=== PATIENT | female | born 1990 | race Caucasian/White ===

== ENCOUNTER 2023-04-05 08:49 | Outpatient (CLI) | payer OTHER, SELFPAY ==
--- NOTE | 2023-04-05 09:15 | CRLHL7_ITS ---
For Patients: As a result of the Century Cures Act, medical imaging exams and procedure reports are released immediately into your electronic medical record. You may view this report before your referring provider. If you have questions, please contact your health care provider. INDICATION: First trimester scan, establish dates. COMPARISON: None. TECHNIQUE: Real-time ross-scale imaging of the pelvis was performed. FINDINGS: Sonographic imaging demonstrates a single living intrauterine gestation. The embryo demonstrates a regular cardiac rate measuring 126 beats per minute. The embryo`s crown-rump length measurement of 1.0 cm corresponds to a gestational age of 7 weeks 1 day with a sonographic due date of 11/21/2023. There is a normal-appearing yolk sac. There are no gross abnormalities noted within the embryo at this early state of development. The gestational sac has a normal appearance. There is no evidence of a perigestational hemorrhage. The amount of fluid within the sac appears appropriate for gestational age. The cervix is closed. The myometrium appears normal. The ovaries are of normal size. Corpus luteal cyst right ovary. There are no suspicious fluid collections noted in the cul-de-sac. IMPRESSION: Normal first trimester OB ultrasound exam. Gestational age calculated at 7 weeks 1 day with a sonographic due date of 11/21/2023. Dictated by Hebert Morejon MD @ 04/05/2023 10:00:41 AM (Electronically Signed)
== END 2023-04-05 08:50 | disposition home or self-care (01) ==
LOC: US 08:51
PROVIDERS: PCP Family Medicine; Visit Provider Registered Nurse
DX: Z34.91 Encounter for supervision of normal pregnancy, unspecified, first trimester (principal); Z3A.01 Less than 8 weeks gestation of pregnancy
CPT/HCPCS: 76817; 82565; 82570; 84156; 84450; 84460; 84520; 86592; 86703; 86762; 86787; 86803; 86850; 86900; 86901; 87086; 87340; 87491; 87591

== ENCOUNTER 2023-05-01 10:45 | Outpatient (CLI) | payer OTHER, SELFPAY | END 2023-05-01 10:46 | disposition home or self-care (01) | PROVIDERS: PCP Family Medicine; Visit Provider Obstetrics & Gynecology | DX: Z34.91 Encounter for supervision of normal pregnancy, unspecified, first trimester (principal); Z87.59 Personal history of other complications of pregnancy, childbirth and the puerperium; Z3A.10 10 weeks gestation of pregnancy | CPT/HCPCS: 81220; 84450; 84460 ==

== ENCOUNTER 2023-05-29 15:50 | Emergency (ER) | payer OTHER, SELFPAY ==
[2023-05-29] VITALS (18 sets, daily range): BP systolic 128–149; BP diastolic 82–96; PULSE 91–140; RESP 18; TEMP 36.4; O2SAT 96–100; BMI 44.8
--- NOTE | 2023-05-29 16:12 | ED.GENADULT ---
HPI - General Adult General Time Seen by Provider: 16:13 Date Seen: 05/29/23 Chief complaint: Dizziness/Vertigo Stated complaint: preganant, high HR, dizziness Time Seen by Provider: 05/29/23 16:07 Source: patient and RN notes reviewed Mode of arrival: ambulatory Limitations: no limitations History of Present Illness HPI narrative: This 33yo female is brought over from OB clinic for elevated heart rate during her clinic appointment today, initially asymptomatic at the initiation of the appointment, not feeling elevated heart rate. During appointment, started to feel sweaty and hot, felt dizzy with standing or sitting; states that she feels so much better now lying down here on the bed. Was absolutely not feeling that her heart was fast today, no chest pain. Only pain that she has been having is right sided abdominal pain which they feel might be related to constipation, has been there for about 2 months. She has been battling constipation for couple months, zofran for associated nausea/vomitting has been making it worse. They feel that she is suffering possibly from dehydration today with her symptoms. Denies urinary issues, no cramping, no vaginal bleeding or discharge. She does endorse times at home after being up and then resting where she will feel her heart beating fast. Does know that she is burping a lot, on omeprazole for reflux. Reports she is about 16 weeks . She states that her OB is working with on constipation, has made some new medication suggestions including Miralax, magnesium. Related Data Home Medications Medication Instructions Recorded Confirmed albuterol sulfate 90 mcg/actuation 2 puff inhalation Q4-6H PRN 05/22/22 05/29/23 aerosol inhaler fluticasone propionate 110 1 puff inhalation BID 05/22/22 05/29/23 mcg/actuation HFA aerosol inhaler (Flovent HFA) guanfacine 1 mg tablet 1 mg PO QDAY 04/05/23 05/29/23 venlafaxine 150 mg 150 mg PO QAM 04/05/23 05/29/23 capsule,extended release 24 hr dotty oil (ANTI-NAUSEA DOTTY gum) 1 piece of gum PO BID PRN 05/01/23 05/29/23 doxylamine succinate 25 mg tablet 25 mg PO QHS PRN 05/29/23 05/29/23 (Unisom (doxylamine)) Previous Rx's Medication Instructions Recorded omeprazole 40 mg capsule,delayed 40 mg PO QDAY #90 caps 05/01/23 release ondansetron HCl 4 mg tablet 4 mg PO Q6H PRN nausea and 05/01/23 vomiting #30 tabs Allergies Allergy/AdvReac Type Severity Reaction Status Date / Time trazodone Allergy Mild Hives Verified 05/29/23 16:10 Review of Systems Status of ROS: Reports: 6 or more systems reviewed and unremarkable except as noted in History and below [facility] Medical History (Updated 05/29/23 @ 19:10 by Ewelina Draper MD) Gestational hypertension (03/2019) ?O13.9 - Gestational [-induced] hypertension without significant proteinuria, unspecified trimester (ICD-10) History of miscarriage ?Z87.59 - Personal history of other complications of , childbirth and the puerperium (ICD-10) hemorrhage ?O72.1 - Other immediate hemorrhage (ICD-10) Surgical History (Updated 05/01/23 @ 18:47 by Adelina Chen MD) Status post primary low transverse section ?Z98.891 - History of uterine scar from previous surgery (ICD-10) History of cholecystectomy ?Z90.49 - Acquired absence of other specified parts of digestive tract (ICD-10) Family History Father Coronary artery disease Mother Depression Social History What is your current living situation?: I presently have a place to live Problems where you live: no known problems In the past 12 months, utilities in danger of being shut off: no In past 12 months, lack of transportation kept you from medical appts, meetings, work, or getting things needed for daily living: no How hard is it for you to pay for the very basics like food, housing, medical care, and heating: not very hard In the past 12 mos, have been you worried that your food would run out before you had money to buy more?: never true In the past 12 mos, the food you bought just didn't last and you didn't have money to buy more?: never true Smoking Status: Current every day smoker What tobacco products do you use: cigarettes Do you use any of these nicotine containing products: None Second hand tobacco smoke exposure: No How often do you have a drink containing alcohol: never How often do you have six or more drinks on one occasion: Never AUDIT-C Alcohol total score: 0 Non-prescribed substance use: denies use Within the last year, have you been humiliated or emotionally abused in other ways by your partner or ex-partner: no Within the last year, have you been afraid of your partner or ex-partner: no Within the last year, have you been raped or forced to have any kind of sexual activity by your partner or ex-partner: no Within the last year, have you been kicked, hit, slapped, or otherwise physically hurt by your partner or ex-partner: no HARK total score: 0 Little interest or pleasure in doing things: more than half the days Feeling down, depressed, or hopeless: several days service: No Exam Const: Vital Signs, click to edit/add: Vital Signs - 24 hr 05/29/23 16:00 05/29/23 16:14 05/29/23 17:23 Temperature 97.5 F L Pulse Rate 100 Pulse Rate [Right Pulse Oximeter] 140 H Respiratory Rate 18 Blood Pressure Blood Pressure [Ri ght Upper Arm] 132/82 Pulse Oximetry 98 98 97 Oxygen Delivery Me od Room Air 05/29/23 17:30 05/29/23 17:32 05/29/23 17:45 Temperature Pulse Rate 102 H 101 H 98 Pulse Rate [Right Pulse Oximeter] Respiratory Rate Blood Pressure 149/91 H Blood Pressure [Ri ght Upper Arm] Pulse Oximetry 97 97 98 Oxygen Delivery Wy thod 05/29/23 18:00 05/29/23 18:02 05/29/23 18:15 Temperature Pulse Rate 91 99 100 Pulse Rate [Right Pulse Oximeter] Respiratory Rate Blood Pressure 138/96 H Blood Pressure [Ri ght Upper Arm] Pulse Oximetry 96 98 99 Oxygen Delivery Wy thod 05/29/23 18:31 05/29/23 18:32 05/29/23 19:00 Temperature Pulse Rate 102 H 108 H 104 H Pulse Rate [Right Pulse Oximeter] Respiratory Rate Blood Pressure 128/89 Blood Pressure [Ri ght Upper Arm] Pulse Oximetry 99 99 [facility] 19:02 Temperature Pulse Rate 100 Pulse Rate [Right Pulse Oximeter] Respiratory Rate Blood Pressure 133/94 H Blood Pressure [Ri ght Upper Arm] Pulse Oximetry 98 Oxygen Delivery Me thod 33-year-old female is alert, interactive, no apparent distress, speaking in complete sentences, no tachypnea noted. She is lying on her side on the ER bed. Sclera is clear, pupils equal round reactive. Symmetrical facial function. Neck is supple, no masses, no thyromegaly masses or nodules. Lungs are clear, good air entry, no wheezing or crackles. Heart rate sounds fast, heart sounds are somewhat distant but I do not hear murmur. Abdomen is obese but soft, nontender, nondistended. She has no appreciable lower extremity edema. Moving arms and legs, no focal neurologic deficit noted Documenting provider has reviewed patient's vital signs: yes Course Course ED Course: Patient's pulse is elevated on intake at triage at 1:40 a.m.. Will have her on cardiac monitoring, pulse oximetry, get baseline EKG. We will initiate an IV, give a L of IV fluids, see if there is anything concerning with her labs. Will try to further differentiate the tachycardia if possible. It is likely that this will be a sinus tachycardia. Reevaluation(s) Time of Reevaluation #1: 19:02 Reevaluation #1: Reviewed with patient that she certainly is demonstrating dehydration on her labs. Her bicarb was low at 15, urine had 3+ ketones. She states when she was up to the bathroom to urinate from which we obtained her urinalysis, she only went to small amount. This was after 1 L of fluids. She states she is also hungry. At rest now, her heart rate was 107-110 when I was with her. This appears to be a sinus tachycardia. I do think there is a component of dehydration certainly. It may remain to be seen that she might be having higher heart rate which can be expected from , will have to follow and see. At this time, have recommended a 2 L of fluids and have ordered lactated Ringer's. I will have nursing staff see if they can find her a snack. We will see what her heart rate is doing after the 2 L of fluids. She is feeling better. Time of Reevaluation #2: 19:53 Reevaluation #2: Patient is nearing completion of her 2 L of fluids. Pulse is in the 90s at rest but when she starts talking to me does jump up to about 100-105. We did discuss normal compensatory rise in baseline pulse with but certainly would not expect 140 as we discussed. Will have her follow up with her OB provider, discussed need to push more fluids. At this time, patient certainly is safe to discharge to further outpatient cares. Vital Signs Vital signs: Initial Vital Signs Temperature 97.5 F L 05/29/23 16:00 Temperature Source Temporal Artery Scan 05/29/23 16:00 Pulse Rate 140 H 05/29/23 16:00 Respiratory Rate 18 05/29/23 16:00 Blood Pressure 132/82 05/29/23 16:00 Blood Pressure Mean 98 05/29/23 16:00 Blood Pressure Position Sitting 05/29/23 16:00 Pulse Oximetry 98 05/29/23 16:00 Oxygen Delivery Method Room Air 05/29/23 16:00 Vital Signs Temperature 97.5 F L 05/29/23 16:00 Pulse Rate 140 H 05/29/23 16:00 Respiratory Rate 18 05/29/23 16:00 Blood Pressure 132/82 05/29/23 16:00 Pulse Oximetry 98 05/29/23 16:00 Oxygen Delivery Method Room Air 05/29/23 16:00 Temperature 97.5 F L 05/29/23 16:00 Pulse Rate 100 05/29/23 19:02 Respiratory Rate 18 05/29/23 16:00 Blood Pressure 133/94 H 05/29/23 19:02 Pulse Oximetry 98 05/29/23 19:02 Oxygen Delivery Method Room Air 05/29/23 16:00 Medical Decision Making Lab Data Lab results reviewed: Yes I reviewed the patient's lab results Labs: Lab Results 05/29/23 05/29/23 Range/Units 17:00 18:25 WBC 11.91 H (4.50-11.00) K/uL RBC 4.77 (4.00-5.20) m/uL Hgb 14.2 (12.0-16.0) gm/dL Hct 41.2 (33.0-51.0) % MCV 86 (80-100) fL MCH 30 (26-34) pg MCHC 35 (32-36) gm/dL RDW Coeff of Tricia 12.4 (11.5-15.5) % Plt Count 260 (140-440) K/uL Neut % (Auto) 73.9 H (42.0-72.0) % Lymph % (Auto) 21.1 (20-44) % [place] % (Auto) 3.6 (0.0-11.0) % Eos % (Auto) 1.1 (0.0-7.0) % Baso % (Auto) 0.1 (0.0-3.0) % Neut # (Auto) 8.80 H (1.7-7.0) K/uL Lymph # (Auto) 2.50 (0.90-2.90) K/uL [place] # (Auto) 0.40 (0.00-0.90) K/UL Eos # (Auto) 0.10 (0.00-0.50) K/uL Baso # (Auto) 0.00 (0.00-0.30) K/uL Abs Immat Gran (auto) 0.00 (0.00-0.30) K/uL Imm/Tot Granulo (auto) 0.2 % Sodium 135 (135-149) mmol/L Potassium 3.9 (3.6-5.1) mmol/L Chloride 107 (96-114) mmol/L Carbon Dioxide 15 L (20-32) mmol/L Anion Gap 13 (7-15) mEq/L BUN 7 (5-24) mg/dL Creatinine 0.5 (0.5-1.5) mg/dL Estimated Creat Clear 158.53 Estimated GFR 129 ml/min Glucose 92 (60-115) mg/dL Lactate 1.0 (0.5-1.9) mmol/L Calcium 9.6 (8.4-10.6) mg/dL Magnesium 1.7 (1.5-2.6) mg/dL Total Bilirubin 0.4 (0.1-1.5) mg/dL AST 25 (12-35) U/L ALT 22 (4-35) U/L Alkaline Phosphatase 76 (40-150) U/L Troponin I < 0.01 L (0.01-0.04) ng/mL NT-Pro-B Natriuret Pep < 20 pg/mL Total Protein 7.3 (6.0-8.3) g/dL Albumin 4.0 (3.3-5.0) g/dL Urine Color Yellow (Yellow) Urine Appearance Cloudy A (Clear) Urine pH 6.0 (5.0-8.5) Ur Specific [place] >= 1.030 (1.000-1.030) Urine Protein 2+ A (Negative) Urine Glucose (UA) Negative (Negative) Urine Ketones 3+ A (Negative) Urine Blood Trace-intact A (Negative) Urine Nitrite Negative (Negative) Urine Bilirubin 1+ A (Negative) Urine Urobilinogen 0.2 (0.2-1.0) Ur Leukocyte Esterase Negative (Negative) Urine RBC 0-2 (0-2) Urine WBC 0-2 (0-5) Ur Squamous Epith Cells Moderate A (None-Few) Urine Bacteria Moderate A (None) Urine Mucus Moderate A (None) ECG Data Attestation: I personally reviewed and interpreted this ECG as follows: (Sinus tachycardia, 110 beats per minute. There is baseline artifact on this EKG. Flipped T-waves V4 V5, difficult to say in V6 due to the baseline artifact. Do not see definitive ST segment changes. Flipped T-waves likely in lead 3 again inconsistent baseline due to artifact.) Prior ECG tracings: not available for review Discharge Plan Discharge Clinical Impression: Sinus tachycardia, Nausea and vomiting during , Acute dehydration Patient Disposition: Home, Self-Care Condition: Stable Instructions: Nausea and Vomiting in (ED), Atrial Tachycardia (ED) Additional Instructions: Need to follow up with OB within the next week for recheck, soon as able to if ongoing concerns. Need to try to stay better hydrated, please talk to your OB about this further particularly if you have ongoing issues that are not settling down with progression. It is not abnormal for heart rate to increase during but do not expect levels of 140's. If you are having problems with ongoing elevated heart rate that is not associated with dehydration, may need to have further cardiac evaluation including but not limited to echo, Holter monitoring or ZIO patch monitoring, possible Cardiology consultation. Ultimately defer to your OB provider. Prescriptions: No Action fluticasone propionate [Flovent HFA] 110 mcg/actuation HFA aerosol inhaler 1 puff inhalation BID albuterol sulfate 90 mcg/actuation HFA aerosol inhaler 2 puff inhalation Q4-6H PRN guanfacine 1 mg tablet 1 mg PO QDAY venlafaxine 150 mg capsule,extended release 24hr 150 mg PO QAM ANTI-NAUSEA DOTTY Gum 1 piece of gum PO BID PRN omeprazole 40 mg capsule,delayed release(DR/EC) 40 mg PO QDAY Qty: 90 0RF ondansetron HCl 4 mg tablet 4 mg PO Q6H PRN (Reason: nausea and vomiting) Qty: 30 2RF Unisom (doxylamine) 25 mg tablet 25 mg PO QHS PRN Follow Up/Referrals: Edinson Loo MD [Primary Care Provider] - Stand Alone Forms: [facility] Inst[facility]
[2023-05-29] MEDS: ONDANSETRON 2 MG/ML inj 4 MG IVP (17:06)
[2023-05-29] MEDS: 0.9 % SODIUM CHLORIDE 1000 ml 1,000 ML IV (17:06)
[2023-05-29 17:07] LABS: Basophils Percent Auto 0.1 % (0.0-3.0); Eosinophils Percent Auto 1.1 % (0.0-7.0); Hematocrit 41.2 % (33.0-51.0); Hemoglobin* 14.2 gm/dL (12.0-16.0); Immature Granulocytes Pct Auto 0.2 %; Lymphocytes Percent Auto 21.1 % (20-44); Mean Corpuscular HGB Conc 35 gm/dL (32-36); Mean Corpuscular Hemoglobin 30 pg (26-34); Mean Corpuscular Volume 86 fL (80-100); Monocytes Percent Auto 3.6 % (0.0-11.0); Neutrophils Percent Auto 73.9 % (42.0-72.0); Platelet Count* 260 K/uL (140-440); RDW Coefficient of Variation % 12.4 % (11.5-15.5); Red Blood Count 4.77 m/uL (4.00-5.20); White Blood Count* 11.91 K/uL (4.50-11.00)
[2023-05-29 17:09] LABS: Slide Review Reflex No
[2023-05-29 17:28] LABS: Magnesium* 1.7 mg/dL (1.5-2.6)
[2023-05-29 18:04] LABS: NT Pro B Type NatriureticPept* < 20 pg/mL; Troponin I* < 0.01 ng/mL (0.01-0.04)
[2023-05-29 18:32] LABS: Appearance Urine Cloudy (Clear); Bilirubin Urine 1+ (Negative); Blood Urine Trace-intact (Negative); Color Urine Yellow (Yellow); Glucose Urine Negative (Negative); Ketones Urine 3+ (Negative); Leukocyte Esterase Urine Negative (Negative); Nitrite Urine Negative (Negative); Protein Urine 2+ (Negative); Specific Gravity Urine >= 1.030 (1.000-1.030); Urobilinogen Urine 0.2 (0.2-1.0)
[2023-05-29 18:33] LABS: Chloride* 107 mmol/L (96-114); Sodium* 135 mmol/L (135-149)
[2023-05-29 18:34] LABS: Potassium* 3.9 mmol/L (3.6-5.1)
[2023-05-29 18:36] LABS: Alanine Aminotransferase* 22 U/L (4-35); Alkaline Phosphatase* 76 U/L (40-150); Anion Gap 13 mEq/L (7-15); Aspartate Amino Transferase* 25 U/L (12-35); Bilirubin Total* 0.4 mg/dL (0.1-1.5); Blood Urea Nitrogen* 7 mg/dL (5-24); Carbon Dioxide* 15 mmol/L (20-32); Creatinine* 0.5 mg/dL (0.5-1.5); Est. Creatinine Clearance* 158.53; Estimated Glomerular Filt Rate 129 ml/min; Total Protein* 7.3 g/dL (6.0-8.3)
[2023-05-29 18:37] LABS: Calcium* 9.6 mg/dL (8.4-10.6); Glucose* 92 mg/dL (60-115)
[2023-05-29 18:41] LABS: Bacteria Urine Moderate; Mucus Urine Moderate; RBC Urine 0-2 (0-2); Squamous Epithelial Cell Urine Moderate (None-Few); WBC Urine 0-2 (0-5)
[2023-05-29] MEDS: LACTATED RINGERS 1000 ML 1,000 ML IV (19:07)
== END 2023-05-29 20:18 | disposition home or self-care (01) ==
PROVIDERS: Emergency Provider Family Medicine; PCP Family Medicine
DX: R00.0 Tachycardia, unspecified (principal); R11.2 Nausea with vomiting, unspecified; E86.0 Dehydration; Z3A.16 16 weeks gestation of pregnancy
CPT/HCPCS: 36415; 80053; 81001; 83605; 83735; 83880; 84484; 85025; 87086; 93005; 94761; 96374; 99284; J2405; J7030; J7120

== ENCOUNTER 2023-07-26 12:47 | Outpatient (CLI) | payer OTHER, SELFPAY | END 2023-07-26 12:48 | disposition home or self-care (01) | PROVIDERS: PCP Family Medicine; Visit Provider Obstetrics & Gynecology | DX: I47.9 Paroxysmal tachycardia, unspecified (principal) | CPT/HCPCS: 80048; 83735; 84443; 93306 ==

== ENCOUNTER 2023-08-21 12:35 | Outpatient (CLI) | payer OTHER, SELFPAY | END 2023-08-21 12:36 | disposition home or self-care (01) | LOC: NFLDREF 08-28 11:51 | PROVIDERS: PCP Family Medicine; Referring Provider Family Medicine; Visit Provider Obstetrics & Gynecology | DX: O13.2 Gestational [pregnancy-induced] hypertension without significant proteinuria, second trimester (principal); Z3A.27 27 weeks gestation of pregnancy | CPT/HCPCS: 76816; 86592 ==

== ENCOUNTER 2023-09-03 21:28 | Outpatient (CLI) | payer OTHER, SELFPAY ==
[2023-09-03] VITALS (21 sets, daily range): BP systolic 108–172; BP diastolic 50–97; PULSE 96–127; RESP 20; TEMP 37.6; O2SAT 92–98
--- NOTE | 2023-09-03 22:14 | CRLHL7_ITS ---
For Patients: As a result of the Century Cures Act, medical imaging exams and procedure reports are released immediately into your electronic medical record. You may view this report before your referring provider. If you have questions, please contact your health care provider. INDICATION: Severe hypertension. TECHNIQUE: Chest 1 view. COMPARISON: None. FINDINGS: Cardiovascular and mediastinum: Heart size and vasculature are normal in caliber and appearance. Lungs and pleural spaces: Lungs are clear. No sign of infiltrate or mass. No sign of pleural effusion. No pneumothorax. Bones and soft tissues: No significant findings. IMPRESSION: Unremarkable chest. Dictated by Ken Singh MD @ 09/03/2023 11:12:42 PM (Electronically Signed)
[2023-09-03] MEDS: LABETALOL HCL 5 MG/ML inj IVP (22:17)
[2023-09-03] MEDS: MAGNESIUM IV 4 GM/100 ML PIGGYBACK IVPB (22:23)
[2023-09-03] MEDS: BETAMETHASONE SOD PHOS/ACETATE 6 MG/ML ML 12 MG IM (22:24)
[2023-09-03 22:41] LABS: Total Protein Urine 11 mg/dL
[2023-09-03 22:42] LABS: Creatinine Urine 143.8 mg/dL
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
[2023-09-03 22:56] LABS: Alanine Aminotransferase* 12 U/L (4-35); Aspartate Amino Transferase* 16 U/L (12-35); Blood Urea Nitrogen* 5 mg/dL (5-24); Creatinine* 0.5 mg/dL (0.5-1.5); Estimated Glomerular Filt Rate 129 ml/min
[2023-09-03 23:04] LABS: Hematocrit 35.7 % (33.0-51.0); Hemoglobin* 12.1 gm/dL (12.0-16.0); Mean Corpuscular HGB Conc 34 gm/dL (32-36); Mean Corpuscular Hemoglobin 30 pg (26-34); Mean Corpuscular Volume 90 fL (80-100); Platelet Count* 313 K/uL (140-440); Red Blood Count 3.99 m/uL (4.00-5.20); White Blood Count* 13.66 K/uL (4.50-11.00)
[2023-09-03 23:08] LABS: Slide Review Reflex No
[2023-09-04] VITALS (10 sets, daily range): BP systolic 122–126; BP diastolic 64–67; PULSE 99–111; TEMP 37.6; O2SAT 92–97
--- NOTE | 2023-09-04 01:52 | PC.OBNST ---
NST Note NST Note Start: 09/03/23 21:30 Freq: ONCE Status: Active Protocol: Document 09/04/23 01:49 SAMIA (Rec: 09/04/23 01:52 NAMITAMindi [id number]) NST Note 3 Para (# of births) 1 EDC 11/21/23 Gestational Age In Weeks & Days 28 Weeks & 6 Days High Risk Factors High Blood Pressure - Preexisting Patient Presented with Complaint(s) of Pain If Pain, describe location Epigastric pain underneath the right ribs Other Complaints Patient has been experiencing shortness of breath, epigastric pain, and frequent headaches in the last few days . Patient states she took her blood pressure at home tonight and that it was low and she was feeling like her heart was racing. Her oxygen saturation was also reading 94% on a home monitor Reactive Yes Appropriate for Gestational Age Yes SUSANA Bertrand RNC Date 09/04/23 Reactive Yes Appropriate for Gestational Age Yes SUSANA Campos RN Date 09/04/23 OB NST charge Yes Complete NST Note via Write Note Yes The provider's electronic signature indicates the NST is reactive/appropriate for gestational age. *Note to provider: If an addendum is required, open the patient's chart and click on the note under the Nurse/Allied Health tab.
== END 2023-09-04 00:55 | disposition other institution (70) ==
LOC: OB OUT 21:29 → OB 21:29
PROVIDERS: PCP Family Medicine; Visit Provider Obstetrics & Gynecology
DX: O10.913 Unspecified pre-existing hypertension complicating pregnancy, third trimester (principal); Z3A.28 28 weeks gestation of pregnancy
CPT/HCPCS: 36415; 59025; 71045; 82565; 82570; 84156; 84450; 84460; 84520; 85027; G0463; J0702; J3475

== ENCOUNTER 2023-09-04 00:45 | Outpatient (CLI) | payer OTHER, SELFPAY | END 2023-09-04 00:46 | disposition home or self-care (01) | LOC: AMB 09-06 16:00 | PROVIDERS: PCP Family Medicine; Visit Provider Family Medicine | DX: O14.10 Severe pre-eclampsia, unspecified trimester (principal) | CPT/HCPCS: A0425; A0426 ==

== ENCOUNTER 2023-09-17 21:50 | Outpatient (CLI) | payer OTHER, SELFPAY ==
[2023-09-17] VITALS (22 sets, daily range): BP systolic 100–126; BP diastolic 52–72; PULSE 94–121; RESP 18; TEMP 37.1; O2SAT 94–99
[2023-09-17 23:40] LABS: Alanine Aminotransferase* 10 U/L (4-35); Aspartate Amino Transferase* 18 U/L (12-35); Creatinine* 0.5 mg/dL (0.5-1.5); Estimated Glomerular Filt Rate 129 ml/min
[2023-09-17 23:41] LABS: Blood Urea Nitrogen* 5 mg/dL (5-24); Hematocrit 33.5 % (33.0-51.0); Hemoglobin* 11.2 gm/dL (12.0-16.0); Mean Corpuscular HGB Conc 33 gm/dL (32-36); Mean Corpuscular Hemoglobin 30 pg (26-34); Mean Corpuscular Volume 89 fL (80-100); Platelet Count* 299 K/uL (140-440); Red Blood Count 3.77 m/uL (4.00-5.20); Slide Review Reflex No
[2023-09-18 00:06] VITALS: BP 112/59; PULSE 104
[2023-09-18 00:23] LABS: Total Protein Urine 20 mg/dL
[2023-09-18 00:24] LABS: Creatinine Urine 322.5 mg/dL
--- NOTE | 2023-09-18 01:49 | PC.OBNST ---
NST Note NST Note Start: 09/17/23 22:03 Freq: ONCE Status: Active Protocol: Document 09/18/23 01:47 LEONARDO (Rec: 09/18/23 01:49 LEONARDO [id number]) NST Note 3 Para (# of births) 1 EDC 11/21/23 Gestational Age In Weeks & Days 30 Weeks & 6 Days High Risk Factors High Blood Pressure - Preexisting,High Blood Pressure - Gestational Patient Presented with Complaint(s) of Other Other Complaints Elevated Blood Pressures at Home Appropriate for Gestational Age Yes RN Reilly Faye RN Date 09/18/23 Appropriate for Gestational Age Yes RN Lana Gandara RN (also reviewed by Dianelys An MD) Date 09/18/23 OB NST charge Yes Complete NST Note via Write Note Yes The provider's electronic signature indicates the NST is reactive/appropriate for gestational age. *Note to provider: If an addendum is required, open the patient's chart and click on the note under the Nurse/Allied Health tab.
== END 2023-09-18 01:12 | disposition home or self-care (01) ==
LOC: OB OUT 21:50 → OB 21:51
PROVIDERS: PCP Family Medicine; Visit Provider Obstetrics & Gynecology
DX: O10.913 Unspecified pre-existing hypertension complicating pregnancy, third trimester (principal); Z3A.30 30 weeks gestation of pregnancy
CPT/HCPCS: 36415; 59025; 82565; 82570; 84156; 84450; 84460; 84520; 85027; G0463

== ENCOUNTER 2023-09-27 09:03 | Outpatient (CLI) | payer OTHER, SELFPAY ==
--- NOTE | 2023-09-27 09:15 | CRLHL7_ITS ---
For Patients: As a result of the Century Cures Act, medical imaging exams and procedure reports are released immediately into your electronic medical record. You may view this report before your referring provider. If you have questions, please contact your health care provider. INDICATION: Chronic HTN, Poly, Obesity COMPARISON: 08/21/2023 TECHNIQUE: Real time ross scale imaging of the fetus was performed. Without non-stress testing. FINDINGS: Sonographic imaging demonstrates a single living intrauterine gestation. Fetus demonstrates a regular cardiac rate of 142 beats per minute. Fetus has a vertex position. The amniotic fluid volume appears normal and there is a single deepest pocket measurement of 7.8 cm. The fetus was active and demonstrated normal breathing movements. There was normal flexion and extension of the trunk and extremities. IMPRESSION: Normal biophysical profile score of 8 out of 8. Dictated by Hebert Morejon MD @ 09/27/2023 12:07:23 PM (Electronically Signed)
== END 2023-09-27 09:04 | disposition home or self-care (01) ==
LOC: US 09:04
PROVIDERS: PCP Family Medicine; Visit Provider Obstetrics & Gynecology
DX: O10.919 Unspecified pre-existing hypertension complicating pregnancy, unspecified trimester (principal); O40.9XX0 Polyhydramnios, unspecified trimester, not applicable or unspecified; O99.210 Obesity complicating pregnancy, unspecified trimester
CPT/HCPCS: 76819

== ENCOUNTER 2023-10-03 12:59 | Outpatient (CLI) | payer OTHER, SELFPAY ==
--- NOTE | 2023-10-03 13:00 | US_ITS ---
Patient: ARTEM MEEHAN Facility:?[facility] Patient ID:?[id number] Site Patient ID:?[id number]. Site :?[id number] Study:?US-OB Pelvis BPP W GROWTH-10/03/2023 2:06:27 PM Ordering Physician:?NESHA THOMPSON Final Report: INDICATION: CHTN, POLY, OBESITY TECHNIQUE: Real time ross scale imaging of the fetus was performed. COMPARISON: 09/27/2023 FINDINGS: Sonographic imaging demonstrates a single living intrauterine gestation. Fetus demonstrates a regular cardiac rate of 167 beats per minute. Fetus has a vertex position. The placenta lies anteriorly. Amniotic fluid volume appears increased and there is a single deepest pocket of 10.0 cm. JESUS ALBERTO 28.9 cm. The estimated weight is 09/23/2004gm which lies at the 89th %. On the prior OB ultrasound dated 08/21/2023 the estimated weight was at the 81st percentile. BPD 84th percentile. HC 48th percentile. AC 94th percentile. FL 79th percentile. The fetus was active and demonstrated normal breathing movements. There was normal flexion and extension of the trunk and extremities. IMPRESSION: Normal biophysical profile score 8/8. Sonographic gestational age 34 weeks 4 days and sonographic due date of 11/10/2023. Sonographic age 11 days ahead of the clinical age. Estimated weight 89th percentile. Abdominal circumference 94th percentile. Polyhydramnios. JESUS ALBERTO 28.9 cm. Dictated by Hebert Morejon MD @ 10/04/2023 6:53:40 AM Signed by:?Hebert Morejon MD @10/04/2023 6:53:40 AM (Electronic Signature)
== END 2023-10-03 13:00 | disposition home or self-care (01) ==
LOC: US 13:00
PROVIDERS: PCP Family Medicine; Visit Provider Obstetrics & Gynecology
DX: O10.913 Unspecified pre-existing hypertension complicating pregnancy, third trimester (principal); O40.3XX0 Polyhydramnios, third trimester, not applicable or unspecified; O99.213 Obesity complicating pregnancy, third trimester; Z3A.34 34 weeks gestation of pregnancy
CPT/HCPCS: 76816; 76819

== ENCOUNTER 2023-10-11 13:49 | Emergency (ER) | payer OTHER, SELFPAY ==
[2023-10-11 14:10] VITALS: BP 107/69; PULSE 89; TEMP 36.5; O2SAT 98; BMI 45.2
--- NOTE | 2023-10-11 15:34 | ED_ITS ---
HPI - General Adult General Date Seen: 10/11/23 Chief complaint: Abdominal Pain Stated complaint: OB appt/34 wks and sent here-95 o2, high BP Time Seen by Provider: 10/11/23 14:59 History of Present Illness HPI narrative: This is a 33-year-old female with a complex past obstetric history who is currently 34 weeks who was referred to the ER today from the OB clinic for evaluation of tachycardia, leg swelling, and to rule out blood clots. She has a complex history. She has a previous and plans to deliver her neck is baby by . She has tobacco use, working on quitting. She has elevated BMI. She has chronic hypertension which has been complicating her . She did have an admission up at [facility] few weeks ago for elevated blood pressure no other symptoms. She is now on labetalol 100 mg b.i.d.. She also has been experiencing sinus tachycardia for the past several months of her , dating back at least to last May. Has been referred for a Cardiology consult. She has already had an echo that was normal. She also has pubic symphysis and hip pain. Also sciatica affecting her . Most recent visit on October 03 had multiple concerns including shortness of breath, musculoskeletal pain, elevated blood pressure, elevated heart rate, polyhydramnios. also did or is desiring expeditious and delivery and also tubal ligation. She has had all of these ongoing symptoms including persistently elevated heart rate for the past few months that still been ongoing for the past few days. She has been short of breath which is largely positional and she thinks related to her baby pushing up against her diaphragm. No new or sudden onset shortness of breath recently or today. 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 She has also had some trouble with sciatica affecting her right leg. She does have some chronic edema in her legs which is apparently related to her 3rd trimester . Today she feels like her left leg is little bit more swollen and tight than normal. She was eating at [employer] today with her family in when she got up she felt a sudden mays of blood up to her head and felt dizzy and saw stars. She went to lay down in her car for a while. She does get frequent migraines and headaches but today's symptoms were not really headache at all, just more of a ?mays to the head. ?. She also has mild chest pain ongoing for the past couple of weeks that is not really different than normal today. It is not pleuritic. She is feeling her baby kicking. No abdominal pain. No vaginal fluid leakage or bleeding. She does not have any concern for the baby at this time. Related Data Home Medications Medication Instructions Recorded Confirmed albuterol sulfate 90 mcg/actuation 2 puff inhalation Q4-6H PRN 05/22/22 10/11/23 aerosol inhaler fluticasone propionate 110 1 puff inhalation BID 05/22/22 10/11/23 mcg/actuation HFA aerosol inhaler (Flovent HFA) guanfacine 1 mg tablet 1 mg PO QDAY 04/05/23 10/11/23 venlafaxine 150 mg 150 mg PO QAM 04/05/23 10/11/23 capsule,extended release 24 hr doxylamine succinate 25 mg tablet 25 mg PO QHS PRN 05/29/23 10/11/23 (Unisom (doxylamine)) aspirin 81 mg tablet,delayed 162 mg PO QDAY 07/26/23 10/11/23 release (Adult Low Dose Aspirin) polyethylene glycol 3350 17 4 g PO ONCE 07/26/23 10/11/23 gram/dose oral powder (Miralax) acetaminophen 500 mg capsule 500 mg PO Q4-6H PRN 09/17/23 10/11/23 magnesium citrate 100 mg capsule 100 mg PO DAILY PRN 09/27/23 10/11/23 Previous Rx's Medication Instructions Recorded hydroxyzine pamoate 50 mg capsule 50 mg PO QHS PRN anxiety/sleep #30 08/21/23 caps labetalol 100 mg tablet 100 mg PO BID #60 tabs 08/21/23 omeprazole 40 mg capsule,delayed 40 mg PO QDAY #90 caps 08/22/23 release Allergies Allergy/AdvReac Type Severity Reaction Status Date / Time trazodone Allergy Mild Hives Verified 10/11/23 14:18 [facility] Medical History (Updated 10/11/23 @ 20:54 by Con Ball MD) Tobacco dependence syndrome ?F17.200 - Nicotine dependence, unspecified, uncomplicated (ICD-10) Gestational hypertension (03/2019) ?O13.9 - Gestational [-induced] hypertension without significant proteinuria, unspecified trimester (ICD-10) History of miscarriage ?Z87.59 - Personal history of other complications of , childbirth and the puerperium (ICD-10) hemorrhage ?O72.1 - Other immediate hemorrhage (ICD-10) Surgical History Status post primary low transverse section ?Z98.891 - History of uterine scar from previous surgery (ICD-10) History of cholecystectomy ?Z90.49 - Acquired absence of other specified parts of digestive tract (ICD- 10) Family History (Updated 09/03/23 @ 23:14 by Dianelys An MD) Father Coronary artery disease Mother Depression Chronic mental illness Other Alcohol dependence Drug dependence Social History (Updated 09/04/23 @ 00:22 by Dianelys An MD) What is your current living situation?: I presently have a place to live Problems where you live: no known problems In the past 12 months, utilities in danger of being shut off: no In past 12 months, lack of transportation kept you from medical appts, meetings, work, or getting things needed for daily living: no How hard is it for you to pay for the very basics like food, housing, medical care, and heating: not very hard In the past 12 mos, have been you worried that your food would run out before you had money to buy more?: never true In the past 12 mos, the food you bought just didn't last and you didn't have money to buy more?: never true Smoking Status: Former smoker What tobacco products do you use: cigarettes Smoking quit date/years: <= 15 years ago Do you use any of these nicotine containing products: None Second hand tobacco smoke exposure: No How often do you have a drink containing alcohol: never How often do you have six or more drinks on one occasion: Never AUDIT-C Alcohol total score: 0 Non-prescribed substance use: denies use Within the last year, have you been humiliated or emotionally abused in other ways by your partner or ex-partner: no Within the last year, have you been afraid of your partner or ex-partner: no Within the last year, have you been raped or forced to have any kind of sexual activity by your partner or ex-partner: no Within the last year, have you been kicked, hit, slapped, or otherwise physically hurt by your partner or ex-partner: no HARK total score: 0 Little interest or pleasure in doing things: several days Feeling down, depressed, or hopeless: nearly every day service: No Exam Narrative: Exam Narrative: Constitutional: Appears well-developed and well-nourished. Alert. Conversant, but seems somewhat anxious and is talking about multiple symptoms, and often switches back and forth from 1 symptom to another. Is redirectable and ultimately I am able to get a fairly good history. Non toxic. Subsequently arrives and he seems calm and supportive. HENT: Head: Atraumatic. Nose: Nose normal. Mouth/Throat: Oral mucosa is clear and moist. no trismus. Pharynx normal. Tonsils symmetric. No tonsillar enlargement, erythema, or exudate. Eyes: Conjunctivae normal. EOM normal. Pupils equal, round, and reactive to light. No scleral icterus. Neck: Normal range of motion. Neck supple. No tracheal deviation present. Cardiovascular: Tachycardic, averaging about 115 sinus tach on the monitor, regular rhythm. No gallop. No friction rub. No murmur heard. Symmetric radial and PT artery pulses Pulmonary/Chest: Effort normal. No stridor. No respiratory distress. No wheezes. No rales. No rhonchi . No tenderness. Abdominal: Soft. Bowel sounds normal. No distension. Protuberant due to gravid uterus. No tenderness. No rebound. No guarding. Musculoskeletal: RUE: Normal range of motion. No tenderness. No deformity LUE: Normal range of motion. No tenderness. No deformity RLE: Normal range of motion. Trace edema. No tenderness. No deformity LLE: Normal range of motion. Trach edema, perhaps slightly more prominent than on the right. No tenderness. No deformity Neurological: Alert and oriented to person, place, and time. Normal strength. CN II-VII intact. No sensory deficit. GCS eye subscore is 4. GCS verbal subscore is 5. GCS motor subscore is 6. Normal coordination Skin: Skin is warm and dry. No rash noted. No pallor. Normal capillary refill. Psychiatric: Normal mood. Pleasant. Somewhat anxious. Const: Vital Signs, click to edit/add: Vital Signs - 24 hr 10/11/23 14:10 Temperature 97.7 F Pulse Rate [Right Pulse Oximeter] 89 Blood Pressure [Ri ght Upper Arm] 107/69 Pulse Oximetry 98 Oxygen Delivery Me thod Room Air Course Vital Signs Vital signs: Initial Vital Signs Temperature 97.7 F 10/11/23 14:10 Temperature Source Temporal Artery Scan 10/11/23 14:10 Pulse Rate 89 10/11/23 14:10 Pulse Rhythm Regular 10/11/23 14:10 Pulse Strength 3+ Normal 10/11/23 14:10 Blood Pressure 107/69 10/11/23 14:10 Blood Pressure Mean 81 10/11/23 14:10 Blood Pressure Position Sitting 10/11/23 14:10 Pulse Oximetry 98 10/11/23 14:10 Oxygen Delivery Method Room Air 10/11/23 14:10 Vital Signs Temperature 97.7 F 10/11/23 14:10 Pulse Rate 89 10/11/23 14:10 Blood Pressure 107/69 10/11/23 14:10 Pulse Oximetry 98 10/11/23 14:10 Oxygen Delivery Method Room Air 10/11/23 14:10 Temperature 97.7 F 10/11/23 14:10 Pulse Rate 89 10/11/23 14:10 Blood Pressure 107/69 10/11/23 14:10 Pulse Oximetry 98 10/11/23 14:10 Oxygen Delivery Method Room Air 10/11/23 14:10 Medical Decision Making MDM Narrative Medical decision making narrative: 33-year-old female with a complex associated with chronic hypertension, persistent sinus tachycardia for several months of her , hypertension on labetalol, referred to the ER today with concern for possible blood clots. In terms of blood clot her symptoms would be a persistent tachycardia. This has been actually present for the past couple of months and is really at baseline today. She also has mild chest pain it has been ongoing for the past couple of weeks. She had a dizzy spell today which was dizzy or than normal for her and also feels like she has new swelling in her left leg consider possible DVT or PE complicating her 3rd trimester. DVT ultrasound of her left leg is negative for clot. Difficult to assign a true risk category for PE risk because of her baseline tachycardia. She certainly is tachycardic today which, if it were a new finding, would put her at high risk. However it has actually been chronic since at least the past 4 months. It is essentially at baseline. We did check screening D-dimer which is abnormal at 1.45. This is not reassuring and requires further workup. Fortunately CT pulmonary angiogram is negative for any sign of PE. Also no evidence for any pericardial effusion, pleural effusion, pneumonitis, pneumonia, pneumothorax, or other cause for dyspnea or chest pain EKG shows nonspecific changes but no definite ischemia or other signs of pericarditis. Troponin is undetectable. She does have a leukocytosis with a white count of 13. White count has been elevated since May and may reflect her . Electrolytes and kidney function are normal. LFTs normal. No new headache or visual symptoms to suggest preeclampsia with severe features. Blood pressure normal at 107/69. At this point I will make she is developing preeclampsia or requires admission for magnesium. Lab Data Labs: Lab Results 10/11/23 Range/Units 17:03 WBC 13.48 H (4.50-11.00) K/uL RBC 4.05 (4.00-5.20) m/uL Hgb 11.3 L (12.0-16.0) gm/dL Hct 35.0 (33.0-51.0) % MCV 86 (80-100) fL MCH 28 (26-34) pg MCHC 32 (32-36) gm/dL RDW Coeff of Tricia 13.0 (11.5-15.5) % Plt Count 279 (140-440) K/uL Neut % (Auto) 70.6 (42.0-72.0) % Lymph % (Auto) 21.9 (20-44) % Graves % (Auto) 5.6 (0.0-11.0) % Eos % (Auto) 0.6 (0.0-7.0) % Baso % (Auto) 0.2 (0.0-3.0) % Neut # (Auto) 9.50 H (1.7-7.0) K/uL Lymph # (Auto) 3.00 H (0.90-2.90) K/uL Graves # (Auto) 0.80 (0.00-0.90) K/UL Eos # (Auto) 0.10 (0.00-0.50) K/uL Baso # (Auto) 0.00 (0.00-0.30) K/uL Abs Immat Gran (auto) 0.10 (0.00-0.30) K/uL Imm/Tot Granulo (auto) 1.1 % D-Dimer Quant (PE/DVT) 1.45 H (0.00-0.50) ug/ml Sodium 133 L (135-149) mmol/L Potassium 3.8 (3.6-5.1) mmol/L Chloride 102 (96-114) mmol/L Carbon Dioxide 20 (20-32) mmol/L Anion Gap 11 (7-15) mEq/L BUN 6 (5-24) mg/dL Creatinine 0.5 (0.5-1.5) mg/dL Estimated Creat Clear 152.62 Estimated GFR 129 ml/min Glucose 89 (60-115) mg/dL Calcium 9.9 (8.4-10.6) mg/dL Total Bilirubin 0.3 (0.1-1.5) mg/dL AST 16 (12-35) U/L ALT 10 (4-35) U/L Alkaline Phosphatase 112 (40-150) U/L Troponin I < 0.01 L (0.01-0.04) ng/mL Total Protein 7.0 (6.0-8.3) g/dL Albumin 3.7 (3.3-5.0) g/dL Imaging Data us venous LLE: Attestation: I have reviewed the pertinent imaging results. Radiologist's impression: Normal sinus rhythm [] MI [] QRS axis [] ST segment/T wave: [] QTc: [] ECG Data Attestation: I personally reviewed and interpreted this ECG as follows: Interpretation: Sinus tachycardia. Rate 116. MI 140 QRS axis normal axis. Her ST segment/T wave: T-wave inversions leads 2, 3, AVF, V3-V6. She had nonspecific changes on her EKG from July 2023. T-wave inversions may be deeper today but may have been obscured by artifact on her previous EKG. No definitive new change. 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 Activity Level: No Restrictions Discharge Diet: Regular Prescriptions: No Action fluticasone propionate [Flovent HFA] 110 mcg/actuation HFA aerosol inhaler 1 puff inhalation BID albuterol sulfate 90 mcg/actuation HFA aerosol inhaler 2 puff inhalation Q4-6H PRN aspirin [Adult Low Dose Aspirin] 81 mg tablet,delayed release (DR/EC) 162 mg PO QDAY polyethylene glycol 3350 [Miralax] 17 gram/dose powder 4 g PO ONCE labetalol 100 mg tablet 100 mg PO BID Qty: 60 1RF hydroxyzine pamoate 50 mg capsule 50 mg PO QHS PRN (Reason: anxiety/sleep) Qty: 30 0RF guanfacine 1 mg tablet 1 mg PO QDAY venlafaxine 150 mg capsule,extended release 24hr 150 mg PO QAM Unisom (doxylamine) 25 mg tablet 25 mg PO QHS PRN acetaminophen 500 mg capsule 500 mg PO Q4-6H PRN magnesium citrate 100 mg capsule 100 mg PO DAILY PRN omeprazole 40 mg capsule,delayed release(DR/EC) 40 mg PO QDAY Qty: 90 0RF Follow Up/Referrals: Edinson Loo MD [Primary Care Provider] - Stand Alone Forms: [employer] Info Instructions
--- NOTE | 2023-10-11 16:15 | US_ITS ---
Patient: ARTEM MEEHAN Facility:?[facility] Patient ID:?[id number] Site Patient ID:?[id number]. Site :?1990 Study:?US-Extremity Left LEV LT-10/11/2023 5:34:34 PM Ordering Physician:?LIBORIO NAVARRETE Final Report: INDICATION: Leg pain and swelling. TECHNIQUE: Ultrasound venous duplex lower left extremity. Compression venous exam was performed using ross-scale, color Doppler, and spectral Doppler analysis. COMPARISON: None. FINDINGS: Deep veins: Sonographic imaging demonstrates the left common femoral, deep femoral, superficial femoral, popliteal, posterior tibial and the contralateral right common femoral veins to be fully compressible with normal color Doppler blood flow. Superficial veins: Greater saphenous vein is fully compressible. No popliteal cyst. IMPRESSION: No DVT in the left lower extremity. Dictated by Gina Muro MD @ 10/11/2023 5:50:45 PM Signed by:?Gina Muro MD @10/11/2023 5:50:45 PM (Electronic Signature)
[2023-10-11 17:37] LABS: Basophils Percent Auto 0.2 % (0.0-3.0); Eosinophils Percent Auto 0.6 % (0.0-7.0); Hemoglobin* 11.3 gm/dL (12.0-16.0); Immature Granulocytes Pct Auto 1.1 %; Lymphocytes Percent Auto 21.9 % (20-44); Mean Corpuscular HGB Conc 32 gm/dL (32-36); Mean Corpuscular Hemoglobin 28 pg (26-34); Mean Corpuscular Volume 86 fL (80-100); Monocytes Percent Auto 5.6 % (0.0-11.0); Neutrophils Percent Auto 70.6 % (42.0-72.0); Platelet Count* 279 K/uL (140-440); Red Blood Count 4.05 m/uL (4.00-5.20); White Blood Count* 13.48 K/uL (4.50-11.00)
[2023-10-11 17:39] LABS: Slide Review Reflex No
[2023-10-11 17:40] LABS: Albumin* 3.7 g/dL (3.3-5.0); Chloride* 102 mmol/L (96-114)
[2023-10-11 17:41] LABS: Potassium* 3.8 mmol/L (3.6-5.1); Sodium* 133 mmol/L (135-149)
[2023-10-11 17:43] LABS: Alkaline Phosphatase* 112 U/L (40-150); Anion Gap 11 mEq/L (7-15); Aspartate Amino Transferase* 16 U/L (12-35); Bilirubin Total* 0.3 mg/dL (0.1-1.5); Carbon Dioxide* 20 mmol/L (20-32); Creatinine* 0.5 mg/dL (0.5-1.5); Est. Creatinine Clearance* 152.62; Estimated Glomerular Filt Rate 129 ml/min
[2023-10-11 17:44] LABS: Alanine Aminotransferase* 10 U/L (4-35); Blood Urea Nitrogen* 6 mg/dL (5-24); Calcium* 9.9 mg/dL (8.4-10.6); D Dimer Quantitative* 1.45 ug/ml (0.00-0.50); Glucose* 89 mg/dL (60-115)
[2023-10-11 18:00] LABS: Troponin I* < 0.01 ng/mL (0.01-0.04)
--- NOTE | 2023-10-11 19:49 | CT_ITS ---
Patient: ARTEM MEEHAN Facility:?[facility] Patient ID:?[id number] Site Patient ID:?[id number]. Site :?1990 Study:?CT-Chest Angio PE 95CC ISOVUE 370-10/11/2023 8:18:22 PM Ordering Physician:ELSA Final Report: INDICATION: Dyspnea, tachycardia, chest pain. TECHNIQUE: CT chest PE was acquired with 95 cc Isovue 370 IV contrast. COMPARISON: None. FINDINGS: Heart and vasculature: Contrast opacification of the pulmonary arterial tree is adequate. No sign of pulmonary embolism. Heart size is normal. Thoracic aorta and pulmonary artery are normal in caliber. Lungs and pleura: No suspicious nodules or infiltrates. No pleural effusions, pleural thickening, or pneumothorax. Lymph nodes/mediastinum: No mediastinal, hilar, or axillary adenopathy. Chest wall: No masses. Upper abdomen: No acute or significant findings. Bones: Unremarkable for age. IMPRESSION: No pulmonary embolism No focal consolidations. Please note that all CT scans at this facility use dose modulation, iterative reconstruction, and/or weight-based dosing when appropriate to reduce radiation dose to as low as reasonably achievable. Dictated by Braeden Morales MD @ 10/11/2023 8:25:22 PM Signed by:?Braeden Morales MD @10/11/2023 8:25:22 PM (Electronic Signature)
== END 2023-10-11 21:05 | disposition home or self-care (01) ==
PROVIDERS: Emergency Provider Emergency Medicine; PCP Family Medicine
DX: R22.42 Localized swelling, mass and lump, left lower limb (principal); R00.0 Tachycardia, unspecified; R07.9 Chest pain, unspecified; Z3A.34 34 weeks gestation of pregnancy
CPT/HCPCS: 36415; 71275; 76819; 80053; 81001; 84484; 85025; 85379; 93005; 93971; 99284; 99285; Q9967

== ENCOUNTER 2023-10-18 12:49 | Outpatient (CLI) | payer OTHER, SELFPAY ==
--- NOTE | 2023-10-18 13:00 | US_ITS ---
Patient: ARTEM MEEHAN Facility:?[facility] Patient ID:?[id number] Site Patient ID:?[id number]. Site :?1990 Study:?US-OB Pelvis BPP-10/18/2023 1:16:14 PM Ordering Physician:?NESHA THOMPSON Final Report: Indication: Chronic hypertension, polyhydramnios, obesity Technique: Grayscale and color Doppler ultrasound imaging of the gravid uterus and fetus. Comparison: 10/11/2023 Findings: Intrauterine gestation in vertex presentation. The heart rate is 161 beats per minute and regular. The amniotic fluid index is 37 centimeters. The deepest vertical pocket is 12.3 centimeters. The placenta is anterior. No previa. movement: 2/2 tone: 2/2 respiratory activity: 2/2 Amniotic Fluid: 2/2. The maternal cervix was not seen. Impression: Viable intrauterine gestation with a biophysical profile score of 8/8. Polyhydramnios with an amniotic fluid index of 37 centimeters, previously 33 centimeters. Dictated by Juani Courtney MD @ 10/19/2023 8:13:10 AM Signed by:?Juani Courtney MD @10/19/2023 8:13:10 AM (Electronic Signature)
== END 2023-10-18 12:50 | disposition home or self-care (01) ==
LOC: US 12:49
PROVIDERS: PCP Family Medicine; Visit Provider Obstetrics & Gynecology
DX: O10.919 Unspecified pre-existing hypertension complicating pregnancy, unspecified trimester (principal); O40.9XX0 Polyhydramnios, unspecified trimester, not applicable or unspecified; O99.210 Obesity complicating pregnancy, unspecified trimester
CPT/HCPCS: 76819

== ENCOUNTER 2023-11-06 22:15 | Emergency (ER) | payer OTHER, SELFPAY ==
[2023-11-06 22:31] VITALS: BP 124/88; PULSE 106; RESP 20; TEMP 36.7; O2SAT 97; BMI 45.9
--- NOTE | 2023-11-06 22:44 | CT_ITS ---
Patient: ARTEM MEEHAN Facility:?[facility] Patient ID:?[id number] Site Patient ID:?[id number]. Site :?1990 Study:?CT-Abdomen/Pelvis WITH 144CC [id number] CONTRAST-11/06/2023 11:56:48 PM Ordering Physician:SATURNINO Final Report: Indication: Midline back pain 6 days status post with epidural Technique: CT through the abdomen and pelvis following 144 mL Isovue 370 IV contrast Comparison: None Findings: Lower chest: No acute abnormality appreciated. Hepatobiliary: No significant parenchymal abnormality is appreciated. Status post cholecystectomy. Spleen: Unremarkable. Pancreas: No acute abnormality appreciated. Adrenal glands: No acute abnormality appreciated. Kidneys: No significant parenchymal abnormality appreciated. No visualized calculi. No hydronephrosis. Bowel: No obstruction. No focal perienteric or pericolonic stranding is appreciated. The appendix is visualized and appears unremarkable. Vascular: No acute abnormality appreciated. Lymph nodes: No gross lymphadenopathy. Peritoneum: Mild stranding along the ventral abdomen and pelvis, postsurgical, with no organized fluid collection appreciated. : Post gravid uterus. Soft tissues: Postsurgical changes to the lower abdominal soft tissues. Bones: No acute fracture. No lytic or blastic lesion. Impression: Evolving postsurgical changes with no acute abnormality appreciated. Post gravid uterus not well evaluated by CT. Please note that all CT scans at this facility use dose modulation, iterative reconstruction, and/or weight-based dosing when appropriate to reduce radiation dose to as low as reasonably achievable. Dictated by Sam Mendoza MD @ 11/07/2023 12:07:02 AM Signed by:?Sam Mendoza MD @11/07/2023 12:07:02 AM (Electronic Signature)
--- NOTE | 2023-11-06 22:44 | CT_ITS ---
Patient: ARTEM MEEHAN Facility:?[facility] Patient ID:?[id number] Site Patient ID:?[id number]. Site :?1990 Study:?CT-Spine Lumbar -11/06/2023 11:58:32 PM Ordering Physician:SATURNINO Final Report: Indication: Midline back pain, 6 days status post with epidural Technique: Noncontrast CT through the lumbar spine with multiplanar reformats Comparison: None Findings: Alignment: Trace L5-S1 retrolisthesis. Bones: No acute fracture. No lytic or blastic lesion. Lumbar levels: No acute abnormality appreciated. Soft tissues: No acute abnormality appreciated. Impression: Unremarkable examination. If there is concern for epidural process such as hematoma or infection, a contrast-enhanced MRI would be recommended for further evaluation. Please note that all CT scans at this facility use dose modulation, iterative reconstruction, and/or weight-based dosing when appropriate to reduce radiation dose to as low as reasonably achievable. Dictated by Sam Mendoza MD @ 11/07/2023 12:02:19 AM Signed by:?Sam Mendoza MD @11/07/2023 12:02:19 AM (Electronic Signature)
--- NOTE | 2023-11-06 22:47 | ED.GENADULT ---
HPI - General Adult General Date Seen: 11/06/23 <Lawson Gill Vinicius DO - Last Filed: 11/06/23 23:47> Chief complaint: Post OB/Post- Complication <Lawson Colvin DO - Last Filed: 11/06/23 23:47> Stated complaint: 6 days , pain <Lawson Gill Vinicius DO - Last Filed: 11/06/23 23:47> Time Seen by Provider: 11/06/23 22:19 <Lawson Jonasram DO - Last Filed: 11/06/23 23:47> Source: patient <Lawson Colvin - Last Filed: 11/06/23 23:47> Mode of arrival: ambulatory <Lawson Colvin - Last Filed: 11/06/23 23:47> Limitations: no limitations <Lawson Colvin - Last Filed: 11/06/23 23:47> History of Present Illness HPI narrative: Patient is a 33-year-old female presenting to the emergency department for multiple problems. She is status post 6 days prior. This is 2nd time she has . was done due to high-risk polyhydramnios. She comes in today for increasing right-sided incisional pain. Her previous C-sections she states she did not have pain like this. She says the pain started last night. Tylenol and ibuprofen have not been managing her pain. She was discharged home with oxycodone but ran out a day earlier. She was given 6 pills at that time. She is also complaining about midline low back pain. She states this seems like it is the same spot she had her epidural. Does states she has some mild right leg weakness. Has not had this leg weakness before but does note she has a history of sciatica which has mostly been under control recently. Denies any saddle anesthesia or loss of bladder or bowel control. Has not had any fevers, chills, nausea or vomiting, diarrhea, constipation, dysuria, lightheadedness, dizziness, vision changes. Is also complaining of a hemorrhoid that she says started up yesterday. She states she has had multiple hemorrhoids before and she feels like she will bill to manage this hemorrhoid conservatively. She states each individual pain she could manage on its own but everything combined is becoming too much. <Lawson Colvin DO - Last Filed: 11/06/23 23:47> Related Data Home medications: Home Medications Medication Instructions Recorded Confirmed albuterol sulfate 90 mcg/actuation 2 puff inhalation Q4-6H PRN 05/22/22 10/18/23 aerosol inhaler fluticasone propionate 110 1 puff inhalation BID 05/22/22 10/18/23 mcg/actuation HFA aerosol inhaler (Flovent HFA) guanfacine 1 mg tablet 1 mg PO QDAY 04/05/23 10/18/23 venlafaxine 150 mg 150 mg PO QAM 04/05/23 10/18/23 capsule,extended release 24 hr doxylamine succinate 25 mg tablet 25 mg PO QHS PRN 05/29/23 10/18/23 (Unisom (doxylamine)) aspirin 81 mg tablet,delayed 162 mg PO QDAY 07/26/23 10/18/23 release (Adult Low Dose Aspirin) polyethylene glycol 3350 17 4 g PO ONCE 07/26/23 10/18/23 gram/dose oral powder (Miralax) acetaminophen 500 mg capsule 500 mg PO Q4-6H PRN 09/17/23 10/18/23 magnesium citrate 100 mg capsule 100 mg PO DAILY PRN 09/27/23 10/18/23 Previous Rx's Medication Instructions Recorded omeprazole 40 mg capsule,delayed 40 mg PO QDAY #90 caps 08/22/23 release hydroxyzine pamoate 50 mg capsule 50 mg PO QHS PRN anxiety/sleep #30 10/15/23 caps labetalol 100 mg tablet 100 mg PO BID #60 tabs 11/05/23 <Lawson Colvin, DO - Last Filed: 11/06/23 23:47> Allergies/adverse reactions: Allergies Allergy/AdvReac Type Severity Reaction Status Date / Time trazodone Allergy Mild Hives Verified 10/17/23 11:25 <Lawson Colivn DO - Last Filed: 11/06/23 23:47> Review of Systems Status of ROS: Reports: 10 or more systems reviewed and unremarkable except as noted in History and below <Lawson Colvin DO - Last Filed: 11/06/23 23:47> [facility] Medical History: Medical History Tobacco dependence syndrome ?F17.200 - Nicotine dependence, unspecified, uncomplicated (ICD-10) Gestational hypertension (03/2019) ?O13.9 - Gestational [-induced] hypertension without significant proteinuria, unspecified trimester (ICD-10) History of miscarriage ?Z87.59 - Personal history of other complications of , childbirth and the puerperium (ICD-10) hemorrhage ?O72.1 - Other immediate hemorrhage (ICD-10) <Lawson Colvin DO - Last Filed: 11/06/23 23:47> Surgical History: Surgical History Status post primary low transverse section ?Z98.891 - History of uterine scar from previous surgery (ICD-10) History of cholecystectomy ?Z90.49 - Acquired absence of other specified parts of digestive tract (ICD-10) <Lawson Colvin DO - Last Filed: 11/06/23 23:47> Family History: Family History Father Coronary artery disease Mother Depression Chronic mental illness Other Alcohol dependence Drug dependence <Lawson Colvin DO - Last Filed: 11/06/23 23:47> Social History: Social History What is your current living situation?: I presently have a place to live Problems where you live: no known problems In the past 12 months, utilities in danger of being shut off: no In past 12 months, lack of transportation kept you from medical appts, meetings, work, or getting things needed for daily living: no How hard is it for you to pay for the very basics like food, housing, medical care, and heating: not very hard In the past 12 mos, have been you worried that your food would run out before you had money to buy more?: never true In the past 12 mos, the food you bought just didn't last and you didn't have money to buy more?: never true Smoking Status: Former smoker What tobacco products do you use: cigarettes Smoking quit date/years: <= 15 years ago Do you use any of these nicotine containing products: None Second hand tobacco smoke exposure: No How often do you have a drink containing alcohol: never How often do you have six or more drinks on one occasion: Never AUDIT-C Alcohol total score: 0 Non-prescribed substance use: denies use Within the last year, have you been humiliated or emotionally abused in other ways by your partner or ex-partner: no Within the last year, have you been afraid of your partner or ex-partner: no Within the last year, have you been raped or forced to have any kind of sexual activity by your partner or ex-partner: no Within the last year, have you been kicked, hit, slapped, or otherwise physically hurt by your partner or ex-partner: no HARK total score: 0 Little interest or pleasure in doing things: several days Feeling down, depressed, or hopeless: nearly every day service: No <Lawson Colvin DO - Last Filed: 11/06/23 23:47> Exam Narrative: Exam Narrative: Const: Well-nourished, Well-developed, in mild distress Eyes: PERRL, no conjunctival injection, and symmetrical lids HENT: Atraumatic external nose and ears. Moist mucous membranes. Neck: Symmetric, trachea midline, No thyromegaly. CVS: RRR, No murmurs or gallops. Peripheral pulses 2+ and equal in all extremities RESP: Unlabored respiratory effort. Clear to auscultation bilaterally. GI: Mild tenderness to right side incisional site, Nondistended, No rebound or guarding. MSK:Extremities w/o deformity, Normal Active ROM, mild tenderness midline lower lumbar around L4 Skin: Warm, Dry. No rashes or lesions. Well-healing incisional site Neuro: Normal Muscle tone, No focal neurological deficits. Psych: Awake, Alert, & Oriented x3. Appropriate mood and affect. <Lawson Colvin DO - Last Filed: 11/06/23 23:47> Const: Vital Signs, click to edit/add: Vital Signs - 24 hr 11/06/23 22:31 11/07/23 00:17 Temperature 98.1 F 98.1 F Pulse Rate [Pulse Oximeter] 106 H 106 H Respiratory Rate 20 20 Blood Pressure [Ri ght Upper Arm] 124/88 124/88 Pulse Oximetry 97 Oxygen Delivery Me thod Room Air <Lawson Colvin DO - Last Filed: 11/06/23 23:47> Vital Signs, click to edit/add: Vital Signs - 24 hr 11/06/23 22:31 11/07/23 00:17 Temperature 98.1 F 98.1 F Pulse Rate [Pulse Oximeter] 106 H 106 H Respiratory Rate 20 20 Blood Pressure [Ri ght Upper Arm] 124/88 124/88 Pulse Oximetry 97 Oxygen Delivery Me thod Room Air <German Sheppard MD - Last Filed: 11/07/23 00:21> Course Reevaluation(s) Time of Reevaluation #1: 00:20 <German Sheppard MD - Last Filed: 11/07/23 00:21> Reevaluation #1: I reviewed CT report on this patient, no evidence of anything acute ongoing. To be Genao abdomen lumbar spine, I am not worried about epidural abscess, or epidural hematoma, she is able to walk around the room normally on examination he is able sit up, she really does not have any he. I agree with assessment, and signed over to me. I do think that she needs use some MiraLax or milk of magnesia with the narcotics as her MRIs will worsen. She was very comfortable this and will be <German Sheppard MD - Last Filed: 11/07/23 00:21> Vital Signs Vital signs: Initial Vital Signs Temperature 98.1 F 11/06/23 22:31 Temperature Source Temporal Artery Scan 11/06/23 22:31 Pulse Rate 106 H 11/06/23 22:31 Respiratory Rate 20 11/06/23 22:31 Blood Pressure 124/88 11/06/23 22:31 Blood Pressure Mean 100 11/06/23 22:31 Blood Pressure Position Sitting 11/06/23 22:31 Pulse Oximetry 97 11/06/23 22:31 Oxygen Delivery Method Room Air 11/06/23 22:31 Vital Signs Temperature 98.1 F 11/06/23 22:31 Pulse Rate 106 H 11/06/23 22:31 Respiratory Rate 20 11/06/23 22:31 Blood Pressure 124/88 11/06/23 22:31 Pulse Oximetry 97 11/06/23 22:31 Oxygen Delivery Method Room Air 11/06/23 22:31 Temperature 98.1 F 11/07/23 00:17 Pulse Rate 106 H 11/07/23 00:17 Respiratory Rate 20 11/07/23 00:17 Blood Pressure 124/88 11/07/23 00:17 Pulse Oximetry 97 11/06/23 22:31 Oxygen Delivery Method Room Air 11/06/23 22:31 <Lawson Colvin DO - Last Filed: 11/06/23 23:47> Initial Vital Signs Temperature 98.1 F 11/06/23 22:31 Temperature Source Temporal Artery Scan 11/06/23 22:31 Pulse Rate 106 H 11/06/23 22:31 Respiratory Rate 20 11/06/23 22:31 Blood Pressure 124/88 11/06/23 22:31 Blood Pressure Mean 100 11/06/23 22:31 Blood Pressure Position Sitting 11/06/23 22:31 Pulse Oximetry 97 11/06/23 22:31 Oxygen Delivery Method Room Air 11/06/23 22:31 Vital Signs Temperature 98.1 F 11/06/23 22:31 Pulse Rate 106 H 11/06/23 22:31 Respiratory Rate 20 11/06/23 22:31 Blood Pressure 124/88 11/06/23 22:31 Pulse Oximetry 97 11/06/23 22:31 Oxygen Delivery Method Room Air 11/06/23 22:31 Temperature 98.1 F 11/07/23 00:17 Pulse Rate 106 H 11/07/23 00:17 Respiratory Rate 20 11/07/23 00:17 Blood Pressure 124/88 11/07/23 00:17 Pulse Oximetry 97 11/06/23 22:31 Oxygen Delivery Method Room Air 11/06/23 22:31 <German Sheppard MD - Last Filed: 11/07/23 00:21> Medications Administered Medications: Generic Name Dose Route Start Last Admin Trade Name Freq PRN Reason Stop Dose Admin Oxycodone HCl 5 mg 11/06/23 23:42 11/06/23 23:44 Oxycodone 5 Mg Tablet PO 11/06/23 23:43 5 mg ONCE ONE Administration Discontinued Medications Generic Name Dose Route Start Last Admin Trade Name Freq PRN Reason Stop Dose Admin Morphine Sulfate 4 mg 11/06/23 23:39 11/06/23 23:43 Morphine 4 Mg/Ml Inj IVP 11/06/23 23:40 Not Given ONCE ONE <Lawson Colvin DO - Last Filed: 11/06/23 23:47> Generic Name Dose Route Start Last Admin Trade Name Fretony PRN Reason Stop Dose Admin Oxycodone HCl 5 mg 11/06/23 23:42 11/06/23 23:44 Oxycodone 5 Mg Tablet PO 11/06/23 23:43 5 mg ONCE ONE Administration Discontinued Medications Generic Name Dose Route Start Last Admin Trade Name Freq PRN Reason Stop Dose Admin Morphine Sulfate 4 mg 11/06/23 23:39 11/06/23 23:43 Morphine 4 Mg/Ml Inj IVP 11/06/23 23:40 Not Given ONCE ONE <German Sheppard MD - Last Filed: 11/07/23 00:21> Medical Decision Making MDM Narrative Medical decision making narrative: Patient is a 33-year-old female presenting for multiple complaints. First off her incision is sites she is tender. It does not appear overtly infected at this time and there is no drainage but considering she denied hot to have this pain with her previous I do want to make sure there is no developing abscess. This seems unlikely with otherwise good vital signs. She is slightly tachycardic but does appear slightly anxious right now. We will do CT scan of the abdomen and pelvis with IV contrast. Will also order a CBC, BMP, lactate. She is having this back pain and well an epidural abscess is unlikely with the very localized symptoms considering she just had lumbar puncture we will have a dedicated lumbar CT to better evaluate this. Finally I offered to inspect her hemorrhoid but she declined and states she can manage that at home. Patient's lactate is very mildly elevated 2.0 but she did not have a white count at this time. No obvious signs of infection. BMP also shows no concerning findings. Patient will be signed out to my colleague, Dr. Sheppard, pending CT results. Expected disposition is discharge at this time. <Lawson Colvin DO - Last Filed: 11/06/23 23:47> Lab Data Labs: Lab Results 11/06/23 11/06/23 Range/Units 22:45 22:46 WBC 10.66 (4.50-11.00) K/uL RBC 4.09 (4.00-5.20) m/uL Hgb 10.6 L (12.0-16.0) gm/dL Hct 34.0 (33.0-51.0) % MCV 83 (80-100) fL MCH 26 (26-34) pg MCHC 31 L (32-36) gm/dL RDW Coeff of Tricia 13.9 (11.5-15.5) % Plt Count 339 (140-440) K/uL Neut % (Auto) 63.7 (42.0-72.0) % Lymph % (Auto) 28.5 (20-44) % Dougherty % (Auto) 3.9 (0.0-11.0) % Eos % (Auto) 2.9 (0.0-7.0) % Baso % (Auto) 0.2 (0.0-3.0) % Neut # (Auto) 6.79 (1.7-7.0) K/uL Lymph # (Auto) 3.04 H (0.90-2.90) K/uL Dougherty # (Auto) 0.40 (0.00-0.90) K/UL Eos # (Auto) 0.31 (0.00-0.50) K/uL Baso # (Auto) 0.02 (0.00-0.30) K/uL Abs Immat Gran (auto) 0.08 (0.00-0.30) K/uL Imm/Tot Granulo (auto) 0.8 % Sodium 138 (135-149) mmol/L Potassium 3.6 (3.6-5.1) mmol/L Chloride 109 (96-114) mmol/L Carbon Dioxide 21 (20-32) mmol/L Anion Gap 8 (7-15) mEq/L BUN 7 (5-24) mg/dL Creatinine 0.6 (0.5-1.5) mg/dL Estimated Creat Clear 132.11 Estimated GFR 123 ml/min Glucose 120 H (60-115) mg/dL Lactate 2.0 H (0.5-1.9) mmol/L Calcium 9.1 (8.4-10.6) mg/dL <Lawson Colvin, DO - Last Filed: 11/06/23 23:47> Lab Results 03/20/24 03/20/24 Range/Units 22:45 22:46 WBC 10.66 (4.50-11.00) K/uL RBC 4.09 (4.00-5.20) m/uL Hgb 10.6 L (12.0-16.0) gm/dL Hct 34.0 (33.0-51.0) % MCV 83 (80-100) fL MCH 26 (26-34) pg MCHC 31 L (32-36) gm/dL RDW Coeff of Tricia 13.9 (11.5-15.5) % Plt Count 339 (140-440) K/uL Neut % (Auto) 63.7 (42.0-72.0) % Lymph % (Auto) 28.5 (20-44) % Dougherty % (Auto) 3.9 (0.0-11.0) % Eos % (Auto) 2.9 (0.0-7.0) % Baso % (Auto) 0.2 (0.0-3.0) % Neut # (Auto) 6.79 (1.7-7.0) K/uL Lymph # (Auto) 3.04 H (0.90-2.90) K/uL Dougherty # (Auto) 0.40 (0.00-0.90) K/UL Eos # (Auto) 0.31 (0.00-0.50) K/uL Baso # (Auto) 0.02 (0.00-0.30) K/uL Abs Immat Gran (auto) 0.08 (0.00-0.30) K/uL Imm/Tot Granulo (auto) 0.8 % Sodium 138 (135-149) mmol/L Potassium 3.6 (3.6-5.1) mmol/L Chloride 109 (96-114) mmol/L Carbon Dioxide 21 (20-32) mmol/L Anion Gap 8 (7-15) mEq/L BUN 7 (5-24) mg/dL Creatinine 0.6 (0.5-1.5) mg/dL Estimated Creat Clear 132.11 Estimated GFR 123 ml/min Glucose 120 H (60-115) mg/dL Lactate 2.0 H (0.5-1.9) mmol/L Calcium 9.1 (8.4-10.6) mg/dL <German Sheppard MD - Last Filed: 11/07/23 00:21> Discharge Plan Discharge Clinical Impression: Pain at surgical incision Back pain Qualifiers: Back pain location: low back pain Chronicity: acute Back pain laterality: midline Sciatica presence: without sciatica Qualified Code(s): M54.50 - Low back pain, unspecified Hemorrhoid Qualifiers: Hemorrhoid type: unspecified Qualified Code(s): K64.9 - Unspecified hemorrhoids <Lawson Colvin DO - Last Filed: 11/06/23 23:47> Patient Disposition: Home, Self-Care <Lawson Colvin DO - Last Filed: 11/06/23 23:47> Condition: Improved <Lawson Colvin DO - Last Filed: 11/06/23 23:47> Instructions: Acute Low Back Pain (ED), [place] (DC) <Lawson Colvin DO - Last Filed: 11/06/23 23:47> Additional Instructions: Take Tylenol and ibuprofen as directed for pain. If that is not helping you can use the oxycodone. Return to emergency department for new or worsening symptoms. He can follow up with the primary care provider if symptoms persist into next week <Lawson Colvin DO - Last Filed: 11/06/23 23:47> Prescriptions: No Action fluticasone propionate [Flovent HFA] 110 mcg/actuation HFA aerosol inhaler 1 puff inhalation BID albuterol sulfate 90 mcg/actuation HFA aerosol inhaler 2 puff inhalation Q4-6H PRN aspirin [Adult Low Dose Aspirin] 81 mg tablet,delayed release (DR/EC) 162 mg PO QDAY polyethylene glycol 3350 [Miralax] 17 gram/dose powder 4 g PO ONCE guanfacine 1 mg tablet 1 mg PO QDAY venlafaxine 150 mg capsule,extended release 24hr 150 mg PO QAM Unisom (doxylamine) 25 mg tablet 25 mg PO QHS PRN acetaminophen 500 mg capsule 500 mg PO Q4-6H PRN magnesium citrate 100 mg capsule 100 mg PO DAILY PRN omeprazole 40 mg capsule,delayed release(DR/EC) 40 mg PO QDAY Qty: 90 0RF hydroxyzine pamoate 50 mg capsule 50 mg PO QHS PRN (Reason: anxiety/sleep) Qty: 30 0RF labetalol 100 mg tablet 100 mg PO BID Qty: 60 1RF <Lawson Colvin DO - Last Filed: 11/06/23 23:47> Follow Up/Referrals: Edinson Loo MD [Primary Care Provider] - <Lawson Colvin DO - Last Filed: 11/06/23 23:47> Stand Alone Forms: [facility] Info Instructions <Lawson Colvin DO - Last Filed: 11/06/23 23:47>
[2023-11-06 23:14] LABS: Basophils Absolute Auto 0.02 K/uL (0.00-0.30); Basophils Percent Auto 0.2 % (0.0-3.0); Eosinophils Absolute Auto 0.31 K/uL (0.00-0.50); Eosinophils Percent Auto 2.9 % (0.0-7.0); Hemoglobin* 10.6 gm/dL (12.0-16.0); Immature Granulocytes Abs Auto 0.08 K/uL (0.00-0.30); Immature Granulocytes Pct Auto 0.8 %; Lymphocytes Absolute Auto 3.04 K/uL (0.90-2.90); Lymphocytes Percent Auto 28.5 % (20-44); Mean Corpuscular HGB Conc 31 gm/dL (32-36); Mean Corpuscular Hemoglobin 26 pg (26-34); Mean Corpuscular Volume 83 fL (80-100); Monocytes Percent Auto 3.9 % (0.0-11.0); Neutrophils Absolute Auto 6.79 K/uL (1.7-7.0); Neutrophils Percent Auto 63.7 % (42.0-72.0); Platelet Count* 339 K/uL (140-440); RDW Coefficient of Variation % 13.9 % (11.5-15.5); Red Blood Count 4.09 m/uL (4.00-5.20); White Blood Count* 10.66 K/uL (4.50-11.00)
[2023-11-06 23:19] LABS: Slide Review Reflex No
[2023-11-06 23:28] LABS: Chloride* 109 mmol/L (96-114); Potassium* 3.6 mmol/L (3.6-5.1); Sodium* 138 mmol/L (135-149)
[2023-11-06 23:30] LABS: Creatinine* 0.6 mg/dL (0.5-1.5); Est. Creatinine Clearance* 132.11; Estimated Glomerular Filt Rate 123 ml/min
[2023-11-06 23:31] LABS: Anion Gap 8 mEq/L (7-15); Blood Urea Nitrogen* 7 mg/dL (5-24); Calcium* 9.1 mg/dL (8.4-10.6); Carbon Dioxide* 21 mmol/L (20-32); Glucose* 120 mg/dL (60-115)
[2023-11-06] MEDS: OXYCODONE 5 MG TABLET PO (23:44)
[2023-11-07 00:17] VITALS: BP 124/88; PULSE 106; RESP 20; TEMP 36.7
[2023-11-07 01:27] VITALS: BP 121/78; PULSE 99; RESP 20; TEMP 36.7; O2SAT 97
== END 2023-11-07 00:15 | disposition home or self-care (01) ==
PROVIDERS: Emergency Provider Student in an Organized Health Care Education/Training Program; PCP Family Medicine
DX: M54.50 Low back pain, unspecified (principal); K64.9 Unspecified hemorrhoids; O90.0 Disruption of cesarean delivery wound
CPT/HCPCS: 36415; 72132; 74177; 80048; 83605; 85025; 99283; 99284; A9270; Q9967

== ENCOUNTER 2024-07-08 20:22 | Emergency (ER) | payer BC, SELFPAY ==
--- NOTE | 2024-07-08 20:24 | ED.GENADULT ---
HPI - General Adult General Chief complaint: Sore Throat Stated complaint: Throat swollen, painful Time Seen by Provider: 07/08/24 20:23 History of Present Illness HPI narrative: Patient reports about two weeks of intermittent right sided earache. Over the past two days she also developed sore throat and also reports popping when drinking warm fluids: is wondering is she has tonsil stones. 34-year-old woman presenting to the emergency department with concern of sore throat. She has had an earache which she wonders if might be sympathy pains as her sister is experiencing similar. Has not had any congestive symptoms otherwise. Over the last couple of days more sore throat and a popping sound in her ear. She did see something white there the looked kind of like bone earlier and then went to look again today and it was gone. So she thinks maybe there was some tonsil stones. Does not sound as though has a major history of this. She also says that she thought the soreness initially might be just related to snoring. She does have a tongue piercing. I note her to be talking a little strangely and she says she is trying to avoid putting her tongue over there is it causes more pain. Does hurt to swallow but able to do so. No difficulty breathing including when lying down. Related Data Home Medications ?Medication ?Instructions ?Recorded ?Confirmed albuterol sulfate 90 mcg/actuation 2 puff inhalation Q4-6H PRN 05/22/22 03/03/24 aerosol inhaler guanfacine 1 mg tablet 1 mg PO QDAY 04/05/23 03/03/24 venlafaxine 150 mg 150 mg PO QAM 04/05/23 03/03/24 capsule,extended release 24 hr acetaminophen 500 mg capsule 500 mg PO Q4-6H PRN 09/17/23 03/03/24 fluticasone propionate 110 1 puff inhalation BID PRN 03/03/24 03/03/24 mcg/actuation HFA aerosol inhaler (Flovent HFA) labetalol 100 mg tablet 100 mg PO QDAY 03/03/24 omeprazole 40 mg capsule,delayed 40 mg PO QDAY PRN 03/03/24 release Previous Rx's ?Medication ?Instructions ?Recorded hydroxyzine pamoate 50 mg capsule 50 mg PO QHS PRN anxiety/sleep #30 10/15/23 caps amlodipine 5 mg tablet 5 mg PO QDAY #30 tabs 05/26/24 Allergies Allergy/AdvReac Type Severity Reaction Status Date / Time trazodone Allergy Mild Hives Verified 03/03/24 14:06 Review of Systems Status of ROS: Reports: 6 or more systems reviewed and unremarkable except as noted in History and below [facility] Medical History Tobacco dependence syndrome ?F17.200 - Nicotine dependence, unspecified, uncomplicated (ICD-10) Gestational hypertension (03/2019) ?O13.9 - Gestational [-induced] hypertension without significant proteinuria, unspecified trimester (ICD-10) History of miscarriage ?Z87.59 - Personal history of other complications of , childbirth and the puerperium (ICD-10) hemorrhage ?O72.1 - Other immediate hemorrhage (ICD-10) Surgical History Status post primary low transverse section ?Z98.891 - History of uterine scar from previous surgery (ICD-10) History of cholecystectomy ?Z90.49 - Acquired absence of other specified parts of digestive tract (ICD-10) Family History Father Coronary artery disease Mother Depression Chronic mental illness Other Alcohol dependence Drug dependence Social History What is your current living situation?: I presently have a place to live Problems where you live: no known problems In the past 12 months, utilities in danger of being shut off: no How hard is it for you to pay for the very basics like food, housing, medical care, and heating: not very hard In the past 12 mos, have been you worried that your food would run out before you had money to buy more?: never true In the past 12 mos, the food you bought just didn't last and you didn't have money to buy more?: never true Smoking Status: Former smoker What tobacco products do you use: cigarettes Smoking quit date/years: <= 15 years ago Do you use any of these nicotine containing products: None Second hand tobacco smoke exposure: No How often do you have a drink containing alcohol: never How often do you have six or more drinks on one occasion: Never AUDIT-C Alcohol total score: 0 Non-prescribed substance use: denies use Within the last year, have you been humiliated or emotionally abused in other ways by your partner or ex-partner: no Within the last year, have you been afraid of your partner or ex-partner: no Within the last year, have you been raped or forced to have any kind of sexual activity by your partner or ex-partner: no Within the last year, have you been kicked, hit, slapped, or otherwise physically hurt by your partner or ex-partner: no HARK total score: 0 service: No Exam Narrative: Exam Narrative: Pleasant. NAD. Breathing easily. No stridor. Tongue piercing is noted in the oropharynx. Subtly affected voice. Resist exam little bit but able to get a good look in the throat ultimately. I do not see any tonsil stones at this point. There is mild erythema on the right tonsillar area versus the left. There is mild swelling of the tonsil or a little encroachment centrally at the right versus the left. TMs bilaterally are clear. Sore to palpation in the upper right anterior cervical neck. No tonsillar stones visible at this time. No facial swelling, erythema or congestion Const: Vital Signs, click to edit/add: Vital Signs - 24 hr 07/08/24 20:28 Temperature 98.3 F Pulse Rate [Pulse Oximeter] 112 H Respiratory Rate 20 Blood Pressure [Ri ght Upper Arm] 138/95 H Pulse Oximetry 97 Oxygen Delivery Me thod Room Air Documenting provider has reviewed patient's vital signs: yes Course Vital Signs Vital signs: Initial Vital Signs Temperature 98.3 F 07/08/24 20:28 Temperature Source Temporal Artery Scan 07/08/24 20:28 Pulse Rate 112 H 07/08/24 20:28 Respiratory Rate 20 07/08/24 20:28 Blood Pressure 138/95 H 07/08/24 20:28 Blood Pressure Mean 109 H 07/08/24 20:28 Pulse Oximetry 97 07/08/24 20:28 Oxygen Delivery Method Room Air 07/08/24 20:28 Vital Signs Temperature 98.3 F 07/08/24 20:28 Pulse Rate 112 H 07/08/24 20:28 Respiratory Rate 20 07/08/24 20:28 Blood Pressure 138/95 H 07/08/24 20:28 Pulse Oximetry 97 07/08/24 20:28 Oxygen Delivery Method Room Air 07/08/24 20:28 Temperature 98.3 F 07/08/24 20:28 Pulse Rate 112 H 07/08/24 20:28 Respiratory Rate 20 07/08/24 20:28 Blood Pressure 138/95 H 07/08/24 20:28 Pulse Oximetry 97 07/08/24 20:28 Oxygen Delivery Method Room Air 07/08/24 20:28 Medical Decision Making MDM Narrative Medical decision making narrative: Sound of her voice concerns me maybe more than anything else. Appears to have a tonsillitis. Unsure if this is infectious versus inflammatory and maybe had been brought about by the tonsil stone as she describes. I do not think there is likely an abscess here. Denies nasal congestion though the popping sound that she has been hearing lately would suggest that that perhaps has been present; some eustachian tube dysfunction. We did discuss potentially scanning although I think the treatment with prednisone and if needed amoxicillin might be appropriate in this case. This is the course we agreed upon in the end. To monitor closely. See patient discharge plan for further discussion Lab Data Labs: Lab Results 07/08/24 Range/Units 20:36 Group A Strep DNA NOT DETECTED (Not Detectd) Discharge Plan Discharge Clinical Impression: Tonsillitis Additional Instructions: As I said I am not convinced this is actually infectious. May have been irritated by what you are describing as a tonsil stone. Consider gargling with order tsp salt in 4 oz of warm water a couple of times daily over the next few days. Prescribing prednisone from [facility] and then if it does not seem to be turning the corner in a couple of days, amoxicillin (8 day course should be enough) If you have marked increase in pain or swelling or any indication of difficulty breathing, please be re-evaluated. Might help to sleep under the mist of a cool mist humidifier. Ibuprofen, acetaminophen. Prescriptions: No Action albuterol sulfate 90 mcg/actuation HFA aerosol inhaler 2 puff inhalation Q4-6H PRN fluticasone propionate [Flovent HFA] 110 mcg/actuation HFA aerosol inhaler 1 puff inhalation BID PRN guanfacine 1 mg tablet 1 mg PO QDAY venlafaxine 150 mg capsule,extended release 24hr 150 mg PO QAM labetalol 100 mg tablet 100 mg PO QDAY omeprazole 40 mg capsule,delayed release(DR/EC) 40 mg PO QDAY PRN acetaminophen 500 mg capsule 500 mg PO Q4-6H PRN hydroxyzine pamoate 50 mg capsule 50 mg PO QHS PRN (Reason: anxiety/sleep) Qty: 30 0RF amlodipine 5 mg tablet 5 mg PO QDAY Qty: 30 0RF Follow Up/Referrals: Edinson Loo MD [Primary Care Provider] - Stand Alone Forms: [facility] Inst[facility]
[2024-07-08 20:28] VITALS: BP 138/95; PULSE 112; RESP 20; TEMP 36.8; O2SAT 97; BMI 43.1
[2024-07-08 21:04] LABS: Strep A DNA Probe* NOT DETECTED (Not Detectd)
[2024-07-08 21:17] LABS: PCR FLU A Negative PCR FLU A (Negative); PCR FLU B Negative PCR FLU B (Negative); PCR RSV Negative PCR RSV (Negative); SARS PCR* Negative SARS-CoV-2 (Negative)
== END 2024-07-08 21:11 | disposition home or self-care (01) ==
LOC: ED 20:59
PROVIDERS: Emergency Provider Family Medicine; PCP Family Medicine
DX: J03.90 Acute tonsillitis, unspecified (principal)
CPT/HCPCS: 87631; 87651; 99283

== ENCOUNTER 2024-09-23 15:56 | Outpatient (CLI) | payer BC, SELFPAY | END 2024-09-23 15:57 | disposition home or self-care (01) | LOC: NFLDREF 15:58 | PROVIDERS: PCP Family Medicine; Visit Provider Family Medicine | DX: R53.83 Other fatigue (principal); N92.0 Excessive and frequent menstruation with regular cycle; I10 Essential (primary) hypertension; G43.829 Menstrual migraine, not intractable, without status migrainosus; E66.01 Morbid (severe) obesity due to excess calories | CPT/HCPCS: 84443 ==

== ENCOUNTER 2024-10-20 00:45 | Emergency (ER) | payer BC, SELFPAY ==
--- OUTSIDE RECORDS SUMMARY | 2024-10-20 00:46 | XMS_ITS | Clinical Summary ---
Author Organization [facility] Address [address] [place] [id number] Care Team Providers Care Concession Worker Name Role Phone Pcp, No Primary Care Provider Unavailabl e Allergies No known active allergies Medications naproxen (NAPROSYN) 500 mg tabletIndication s:Anterior chest wall pain,Chest pain, unspecified type Take 1 tablet by mouth 2 times daily with meals. 15 tablet 0 6 Active cyclobenzaprine (FLEXERIL) 10 mg tablet Take 1 tablet by mouth at bedtime if needed for Muscle Spasm. 0 6 Active triamcinolone (ARISTOCORT; KENALOG) 0.1 % creamIndications :Rash Apply topically to affected area(s) 3 times daily. 1 Tube 0 6 Active naproxen (NAPROSYN) 500 mg tabletIndication s:Chest wall pain Take 1 tablet by mouth every 12 hours if needed. 30 tablet 0 6 Active cyclobenzaprine (FLEXERIL) 10 mg tabletIndication s:Chest wall pain Take 1 tablet by mouth every 8 hours if needed for Muscle Spasm. 30 tablet 0 6 Active Active Problems Problem Noted Date Diagnosed Date Tobacco use disorder Immunizations Name Administration Dates Next Due AMB Influenza, IIV3 (Age >=3 years)([facility]) 06/30/2010 Family History Medical History Relation Name Comments Other Mother IVANIA, arnold chi kiko, fibromyalgia Relation Name Status Comments Brother Alive 1 Father Alive Mother Alive Sister Alive 6 Social History Tobacco Use Types Packs/Day Years Used Date Smoking Tobacco: Some Days Cigarettes Smokeless Tobacco: Never Tobacco Cessation:Ready to Q uit: No; Counseling Given: Yes Comments:1/4 pack a week Alcohol Use Standard Drinks/Week Comments No 0 (1 standard drink = 0.6 oz pur e alcohol) PHQ-2 Answer Date Recorded PHQ-2 Score 0 10/21/2018 Comments No Sex and Gender Information Value Date Recorded Sex Assigned at Not on file Legal Sex 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 Gender Identity Not on file Sexual Orientation Not on file Obstetrics History Para Term AB IAB SAB Ectopic Multiple Livin g Live Births 0 0 0 0 0 0 0 0 0 0 Last Filed Vital Signs Vital Sign Reading Time Taken Comments Blood Pressure 128/85 04/03/2018 10:21 AM CDT Pulse 85 04/03/2018 10:21 AM CDT Temperature 37 C (98.6 F) 03/25/2016 12:48 PM CDT Respiratory Rate 18 03/25/2016 12:48 PM CDT Oxygen Saturation 97% 04/03/2018 10:21 AM CDT Inhaled Oxygen Concentration - - Weight 129.7 kg (286 lb) 04/03/2018 10:21 AM CDT Height 169.5 cm (5' 6.73) 04/03/2018 10:21 AM C DT Body Mass Index 45.15 04/03/2018 10:21 AM CDT Plan of Treatment Health Maintenance Due Date Last Done Comments Tdap 2003 HIV for age 15-65 2007 Hepatitis C screening for ag e 18-79 2010 Tetanus booster 2012 BMI (ht and wt on same day) for age 18+ 04/03/2019 04/03/2018, 03/25/2016, 10/14/2015 Depression screening for age 12+ 04/07/2019 04/07/2018, 04/03/2018 COVID-19 vaccine series (2023- season) 2024 Influenza for age 9-49 04/19/2024 06/30/2010 Pap test for age 21-65 04/05/2026 , 04/05/2023, 10/01/2018 Pneumococcal series for age 6-49 Aged Out No longer eligible b ased on patient's age to complete this topic Procedures Procedure Name Priority Date/Time Associated Diagnosis Comments HPV HIGH RISK Routine 04/05/2023 11:45 AM CDT from Last 3 Months or Most Recently Relevant to Health Maintenance Results * HPV HIGH RISK (04/05/2023 11:45 AM CDT) TYPE 16 Negative Negative 04/10/2023 5:12 PM CDT [facility] TYPE 18 Negative Negative 04/10/2023 5:12 PM CDT [facility] OTHER HIGH RISK TYPES Negative Negative 04/10/2023 5:12 PM CDT [facility] Other (Cervical) 04/05/2023 11:45 AM CDT 04/08/2023 4:58 PM CDT Narrative [facility] - 04/10/2023 5:12 PM CDT HPV types 16, 18, 31, 33, 35, 39, 45, 51, 52, 56, 58, 59, 66 and 68 DNA were undetectable or below the pre-set threshold. Methodology: Ronna Domi 4800 HPV Test us Inez Beard NP MICROBIOLOGY Final Res ult [facility] [address] [place] [address], [place] from Last 3 Months or Most Recently Relevant to Health Maintenance Care Teams Concession Worker Relationship Specialty Start Date End Date Pcp, No . PCP - General 07/07/12
--- OUTSIDE RECORDS SUMMARY | 2024-10-20 00:47 | XMS_ITS | Clinical Summary ---
Author Organization [facility] Address [address] [place] [address] Care Team Providers Care Bail Bondsman Name Role Phone No Ref-Primary, Physician Primary Care Provider Amy Merrill MD Unavailable [phone] Allergies Active Allergy Reactions Criticality Noted Date Comments Trazodone Itching 09/04/2023 Medications NO ACTIVE MEDICATIONS Active Omeprazole 20 MG tablet Take 20 mg by mouth 2 times daily. Active albuterol (PROVENTIL HFA: VENTOLIN HFA) 108 (90 BASE) MCG/ACT inhalerIndicatio ns:Intermittent asthma Inhale 2 puffs into the lungs every 4 hours as needed for shortness of breath / dyspnea. 1 Inhaler 1 1 Active venlafaxine (EFFEXOR-ER) 150 MG 24 hr tablet Take 150 mg by mouth daily Active hydrOXYzine HCl (ATARAX) 50 MG tablet Take 50 mg by mouth 3 times daily as needed for itching Active guanFACINE (TENEX) 1 MG tablet Take 1 mg by mouth at bedtime Active labetalol (NORMODYNE) 100 MG tablet Take 100 mg by mouth 2 times daily Active acetaminophen (TYLENOL) 325 MG tabletIndication s:S/P section Take 2 tablets (650 mg) by mouth every 6 hours as needed for mild pain Start after Delivery. 100 tablet 4 Active ibuprofen (ADVIL/MOTRIN) 600 MG tabletIndication s:S/P section Take 1 tablet (600 mg) by mouth every 6 hours as needed for moderate pain Start after delivery 60 tablet 4 Active senna-docusate (SENOKOT-S/PERIC OLACE) 8.6-50 MG tabletIndication s:S/P section Take 1 tablet by mouth daily Start after delivery. 100 tablet 4 Active Active Problems Problem Noted Date Diagnosed Date Chronic hypertension affecting 024 Gastroesophageal reflux disease without esophagi tis 10/31/2023 Depression, unspecified depression type 10/31/19 24 Mild intermittent asthma, unspecified whether co mplicated 10/31/2023 Chronic hypertension in 09/04/2023 CARDIOVASCULAR SCREENING; LDL GOAL LESS THAN 160 06/21/2011 GERD (gastroesophageal reflux disease) 1 Intermittent asthma 06/21/2011 Immunizations Name Administration Dates Next Due Hepatitis A (ADULT 19+) 06/26/2013 Influenza (IIV3) PF 06/30/2010 Influenza Vaccine >6 months,quad, PF 06/26/2013 Influenza Vaccine, 6+MO IM ( QUADRIVALENT W/PRESERVATIVES) 06/26/2013 TDAP (Adacel,Boostrix) 09/13/2023,02/25/2019 Social History Tobacco Use Types Packs/Day Years Used Date Smoking Tobacco: Some Days Cigarettes Smokeless Tobacco: Never Tobacco Cessation:Ready to Q uit: Not Asked; Counseling Given: Not Answered Comments:Quit smoking in first trimester. 10/31/2023 Alcohol Use Standard Drinks/Week Comments No 0 (1 standard drink = 0.6 oz pur e alcohol) PHQ-2 Answer Date Recorded PHQ-2 Score 4 10/23/2023 Check Depression Scale Answer Date Recorded Last EPDS Total Score Not on file 11/02/2023 The thought of harming myself has occurred to me . 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 Gender Identity Not on file Sexual Orientation Not on file Last Filed Vital Signs Vital Sign Reading Time Taken Comments Blood Pressure 116/75 11/02/2023 7:59 AM CDT Pulse 89 11/02/2023 7:59 AM CDT Temperature 36.6 C (97.9 F) 11/02/2023 7:59 AM CDT Respiratory Rate 16 11/02/2023 7:59 AM CDT Oxygen Saturation 100% 11/01/2023 12:08 PM CDT Inhaled Oxygen Concentration - - Weight 132.9 kg (293 lb) 11/02/2023 1:14 PM CDT Height 170.2 cm (5' 7) 10/31/2023 9:04 AM CDT Body Mass Index 45.89 10/31/2023 9:04 AM CDT Plan of Treatment Health Maintenance Due Date Last Done Comments ADVANCE CARE PLANNING 1992 ANNUAL REVIEW OF HM ORDERS 1992 ASTHMA CONTROL TEST 1992 NICOTINE/TOBACCO CESSATION COUNSELING Q 1 YR 1992 YEARLY PREVENTIVE VISIT 1995 HIV SCREENING 2007 HEPATITIS C SCREENING 2010 HEPATITIS B IMMUNIZATION (1 of 3 - 19+ 3-dose series) 2011 Pneumococcal Vaccine: Pediatrics (0 to 5 Years) and At-Risk Patients (6 to 49 Years) (1 of 2 - PCV) 2011 ASTHMA ACTION PLAN 06/21/2012 06/21/2011 COVID-19 Vaccine ( - 2023-2 5 season) 2024 INFLUENZA VACCINE (#1) 2024 3, 06/26/2013, 06/30/2010 PHQ-2 (once per calendar year) 2024 10/23/2023, 10/23/2023 PAP 04/05/2026 04/05/2023, 04/05/2023 DTAP/TDAP/TD IMMUNIZATION (3 - Td or Tdap) 09/13/2033 09/13/2023, 02/25/2019 ZOSTER IMMUNIZATION (1 of 2) 2042 RSV VACCINE (1 - 1-dose 75+ series) 2067 HPV IMMUNIZATION Aged Out No longer e ligible based on patient's age to complete this topic MENINGITIS IMMUNIZATION Aged Out No l onger eligible based on patient's age to complete this topic RSV MONOCLONAL ANTIBODY Aged Out No l onger eligible based on patient's age to complete this topic Procedures Procedure Name Priority Date/Time Associated Diagnosis Comments ASTHMA ACTION PLAN Routine 06/21/2011 10:12 AM CD T Intermittent asthma from Last 3 Months or Most Recently Relevant to Health Maintenance [place] [address] [place] [address] Advance Directives For more information, please contact: [phone] * Full Code (Latest Code Status on File) Date Activated Date Inactivated Comments 10/31/2023 4:58 PM 11/02/2023 4:21 PM All basic an d advanced life-sustaining interventions are performed as appropriate Question Answer Comments Code status determined by: Discussion with patie nt/ legal decision maker * Full Code Date Activated Date Inactivated Comments 09/04/2023 2:38 AM 09/05/2023 10:26 PM All basic a nd advanced life-sustaining interventions are performed as appropriate Question Answer Comments Code status determined by: Discussion with patie nt/ legal decision maker Care Teams Bail Bondsman Relationship Specialty Start Date End Date No Ref-Primary, Physician PCP - General 06/18/23 Amy Merrill MD [address] [place] [id number] Assigned OBGYN Provider 11/01/23
--- OUTSIDE RECORDS SUMMARY | 2024-10-20 00:47 | XMS_ITS | Encounter Summary ---
Author Organization [facility] Address [address] [place] [address] Care Team Providers Care Stove Mounter Name Role Phone No Ref-Primary, Physician Primary Care Provider Amy Merrill MD Unavailable [phone] Encounter Details Date Type Department Care Team (Late st Contact Info) Description 11/05/2023 [facility] [place] [facility] [place] [address] [place] [address] Randa Abreu, RN Social History Tobacco Use Types Packs/Day Years Used Date Smoking Tobacco: Some Days Cigarettes Smokeless Tobacco: Never Comments:Quit smoking in fir st trimester. 10/31/2023 Alcohol Use Standard Drinks/Week Comments No 0 (1 standard drink = 0.6 oz pur e alcohol) PHQ-2 Answer Date Recorded PHQ-2 Score 4 10/23/2023 [place] Depression Scale Answer Date Recorded Last EPDS Total Score Not on file 11/02/2023 The thought of harming myself has occurred to me . 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
[2024-10-20 00:49] VITALS: BP 148/95; PULSE 116; RESP 16; TEMP 36.8; O2SAT 97; BMI 47.0
--- NOTE | 2024-10-20 01:06 | ED.EAR ---
HPI - Ear Problem General Date Seen: 10/20/24 Chief complaint: Ear/Nose/Throat Problem Stated complaint: R ear pain/difficulty hearing Time Seen by Provider: 10/20/24 00:47 Source: patient Mode of arrival: ambulatory Limitations: no limitations History of Present Illness HPI Narrative: Insert a 34-year-old female presenting to emergency department for right ear pain. She states she has been having viral symptoms for the past 2 weeks but then at 21:00 today she started having severe right ear pain. States it started relatively suddenly. No states it is hard to hear of the right ear. No associated dizziness. Denies fevers, chills, chest pain, shortness of breath, abdominal pain, lightheadedness, dizziness, weakness, numbness. 1 medication she has taken so far has been her cold medication. No other concerns. States she has not had an ear infection for quite a while. Has not noticed any drainage. No pain behind the ear. Related Data Home Medications ?Medication ?Instructions ?Recorded ?Confirmed albuterol sulfate 90 mcg/actuation 2 puff inhalation Q4-6H PRN 05/22/22 10/12/24 aerosol inhaler acetaminophen 500 mg capsule 500 mg PO Q4-6H PRN 09/17/23 10/12/24 fluticasone propionate 110 1 puff inhalation BID PRN 03/03/24 10/12/24 mcg/actuation HFA aerosol inhaler (Flovent HFA) guanfacine 1 mg tablet 2 mg PO QDAY 09/23/24 10/12/24 venlafaxine 150 mg 225 mg PO QAM 09/23/24 10/12/24 capsule,extended release 24 hr Previous Rx's ?Medication ?Instructions ?Recorded hydroxyzine pamoate 50 mg capsule 50 mg PO QHS PRN anxiety/sleep #30 10/15/23 caps omeprazole 40 mg capsule,delayed 40 mg PO QDAY #90 caps 09/23/24 release tirzepatide 2.5 mg/0.5 mL 2.5 mg (0.5 mL) subcut QWEEK #2 mL 10/01/24 subcutaneous pen injector ([place]) Allergies Allergy/AdvReac Type Severity Reaction Status Date / Time trazodone Allergy Mild Hives Verified 10/12/24 14:51 Review of Systems Status of ROS: Reports: 10 or more systems reviewed and unremarkable except as noted in History and below PFSH PFS Medical History Tobacco dependence syndrome ?F17.200 - Nicotine dependence, unspecified, uncomplicated (ICD-10) Gestational hypertension (03/2019) ?O13.9 - Gestational [-induced] hypertension without significant proteinuria, unspecified trimester (ICD-10) History of miscarriage ?Z87.59 - Personal history of other complications of , childbirth and the puerperium (ICD-10) hemorrhage ?O72.1 - Other immediate hemorrhage (ICD-10) Surgical History Status post primary low transverse section ?Z98.891 - History of uterine scar from previous surgery (ICD-10) History of cholecystectomy ?Z90.49 - Acquired absence of other specified parts of digestive tract (ICD-10) Family History Father Coronary artery disease Mother Depression Chronic mental illness Other Alcohol dependence Drug dependence Social History What is your current living situation?: I presently have a place to live Problems where you live: no known problems In the past 12 months, utilities in danger of being shut off: no In past 12 months, lack of transportation kept you from medical appts, meetings, work, or getting things needed for daily living: no How hard is it for you to pay for the very basics like food, housing, medical care, and heating: not very hard In the past 12 mos, have been you worried that your food would run out before you had money to buy more?: never true In the past 12 mos, the food you bought just didn't last and you didn't have money to buy more?: never true Smoking Status: Former smoker What tobacco products do you use: cigarettes Smoking quit date/years: <= 15 years ago Do you use any of these nicotine containing products: None Second hand tobacco smoke exposure: No How often do you have a drink containing alcohol: never How often do you have six or more drinks on one occasion: Never AUDIT-C Alcohol total score: 0 Non-prescribed substance use: denies use Within the last year, have you been humiliated or emotionally abused in other ways by your partner or ex-partner: no Within the last year, have you been afraid of your partner or ex-partner: no Within the last year, have you been raped or forced to have any kind of sexual activity by your partner or ex-partner: no Within the last year, have you been kicked, hit, slapped, or otherwise physically hurt by your partner or ex-partner: no HARK total score: 0 service: No Exam Narrative: Exam Narrative: Const: Well-nourished, Well-developed, in mild distress Eyes: PERRL, no conjunctival injection, and symmetrical lids HENT: Atraumatic external nose and ears. Moist mucous membranes. Erythematous right tympanic membrane. No drainage or discharge coming from the ear. No swelling or tenderness noted to the postauricular area. No swelling noted within the external auditory canal. Normal left ear and tympanic membrane Neck: Symmetric, trachea midline, No thyromegaly. MSK:Extremities w/o deformity, Normal Active ROM Skin: Warm, Dry. No rashes or lesions. Neuro: Normal Muscle tone, No focal neurological deficits. Psych: Awake, Alert, & Oriented x3. Appropriate mood and affect. Const: Vital Signs, click to edit/add: Vital Signs - 24 hr 10/20/24 00:49 Temperature 98.3 F Pulse Rate [Pulse Oximeter] 116 H Respiratory Rate 16 Blood Pressure [Ri ght Upper Arm] 148/95 H Pulse Oximetry 97 Oxygen Delivery Me thod Room Air Course Vital Signs Vital signs: Initial Vital Signs Temperature 98.3 F 10/20/24 00:49 Temperature Source Temporal Artery Scan 10/20/24 00:49 Pulse Rate 116 H 10/20/24 00:49 Respiratory Rate 16 10/20/24 00:49 Blood Pressure 148/95 H 10/20/24 00:49 Blood Pressure Mean 112 H 10/20/24 00:49 Blood Pressure Position Sitting 10/20/24 00:49 Pulse Oximetry 97 10/20/24 00:49 Oxygen Delivery Method Room Air 10/20/24 00:49 Vital Signs Temperature 98.3 F 10/20/24 00:49 Pulse Rate 116 H 10/20/24 00:49 Respiratory Rate 16 10/20/24 00:49 Blood Pressure 148/95 H 10/20/24 00:49 Pulse Oximetry 97 10/20/24 00:49 Oxygen Delivery Method Room Air 10/20/24 00:49 Temperature 98.3 F 10/20/24 00:49 Pulse Rate 116 H 10/20/24 00:49 Respiratory Rate 16 10/20/24 00:49 Blood Pressure 148/95 H 10/20/24 00:49 Pulse Oximetry 97 10/20/24 00:49 Oxygen Delivery Method Room Air 10/20/24 00:49 Medical Decision Making MDM Narrative Medical decision making narrative: Patient is a 32-year-old female presenting for right ear pain. Does appear to otitis media. No signs of otitis externa. No signs of mastoiditis or malignant otitis externa. Due to the amount of pain she is having I will discharge her with amoxicillin prescribed through [facility]. She is agreeable to this plan. Discharge Plan Discharge Clinical Impression: Acute right otitis media Patient Disposition: Home, Self-Care Condition: Stable Instructions: Ear Infection (ED) Additional Instructions: Take Tylenol and ibuprofen for pain. Use antibiotics as directed. Return for new or worsening symptoms. Prescriptions: No Action albuterol sulfate 90 mcg/actuation HFA aerosol inhaler 2 puff inhalation Q4-6H PRN fluticasone propionate [Flovent HFA] 110 mcg/actuation HFA aerosol inhaler 1 puff inhalation BID PRN guanfacine 1 mg tablet 2 mg PO QDAY venlafaxine 150 mg capsule,extended release 24hr 225 mg PO QAM omeprazole 40 mg capsule,delayed release(DR/EC) 40 mg PO QDAY Qty: 90 3RF acetaminophen 500 mg capsule 500 mg PO Q4-6H PRN hydroxyzine pamoate 50 mg capsule 50 mg PO QHS PRN (Reason: anxiety/sleep) Qty: 30 0RF Mounjaro 2.5 mg/0.5 mL pen injector 2.5 mg subcut QWEEK Qty: 2 0RF Rx Instructions: for 4 weeks Follow Up/Referrals: Edinson Loo MD [Primary Care Provider] - Stand Alone Forms: [facility] Info Instructions
--- OUTSIDE RECORDS SUMMARY | 2024-10-20 01:09 | XMS_ITS | Clinical Summary ---
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 Gender Identity Not on file Sexual Orientation [...] 16 Negative Negative 04/10/2023 5:12 PM CDT [facility] TYPE 18 Negative Negative 04/10/2023 5:12 PM CDT [facility] OTHER HIGH RISK TYPES Negative Negative 04/10/2023 5:12 PM CDT [facility] Other (Cervical) 04/05/2023 11:45 AM CDT 04/08/2023 4:58 PM CDT Narrative [facility] - 04/10/2023 5:12 PM CDT HPV types 16, 18, 31, 33, 35, 39, 45, 51, 52, 56, 58, 59, 66 and 68 DNA were undetectable or below the pre-set threshold. Methodology: Ronna Domi 4800 HPV Test us Inez Beard NP MICROBIOLOGY Final Res ult [facility] [address] [place] [address], [place] from Last 3 Months or Most Recently Relevant to Health Maintenance Care Teams Boiler Tester Relationship Specialty Start Date End Date Pcp, No . PCP - General 07/07/12
--- OUTSIDE RECORDS SUMMARY | 2024-10-20 01:10 | XMS_ITS | Encounter Summary ---
Author Organization [facility] Address [address] [place] [address] Care Team Providers Care Print Decorator Name Role Phone No Ref-Primary, Physician Primary Care Provider Amy Merrill MD Unavailable [phone] Encounter Details Date Type Department Care Team (Late st Contact Info) Description 11/05/2023 [facility] [place] [address] [place] [address] Randa Abreu, RN Social History Tobacco Use Types Packs/Day Years Used Date Smoking Tobacco: Some Days Cigarettes Smokeless Tobacco: Never Comments:Quit smoking in fir st trimester. 10/31/2023 Alcohol Use Standard Drinks/Week Comments No 0 (1 standard drink = 0.6 oz pur e alcohol) PHQ-2 Answer Date Recorded PHQ-2 Score 4 10/23/2023 [place] Depression Scale Answer Date Recorded Last EPDS Total Score Not on file 11/02/2023 The thought of harming myself has occurred to me . 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
--- OUTSIDE RECORDS SUMMARY | 2024-10-20 01:10 | XMS_ITS | Clinical Summary ---
Author Organization [facility] Address [address] [place] [address] Care Team Providers Care Black Top Machine Operator Name Role Phone No Ref-Primary, Physician Primary Care Provider Amy Merrill MD Unavailable [phone] Allergies Active Allergy Reactions Criticality Noted [...] Answer Date Recorded PHQ-2 Score 4 10/23/2023 [place] Depression Scale Answer Date Recorded Last EPDS Total Score Not on file 11/02/2023 The thought of harming myself has occurred to me . 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
[2024-10-20 01:21] VITALS: BP 135/78; PULSE 95; RESP 16; TEMP 36.8; O2SAT 97
[2024-10-20 01:22] VITALS: BP 135/78; PULSE 95; RESP 16; TEMP 36.8
== END 2024-10-20 01:22 | disposition home or self-care (01) ==
PROVIDERS: Emergency Provider Student in an Organized Health Care Education/Training Program; PCP Family Medicine
DX: H66.91 Otitis media, unspecified, right ear (principal)
CPT/HCPCS: 99283

== ENCOUNTER 2024-10-25 17:41 | Emergency (ER) | payer BC, SELFPAY ==
--- NOTE | 2024-10-25 17:46 | ED.GENADULT ---
HPI - General Adult General Chief complaint: Ear/Nose/Throat Problem Stated complaint: Ear infection, congestion Time Seen by Provider: 10/25/24 17:43 History of Present Illness HPI narrative: Three 4-year-old female with a history of hypertension, preeclampsia (here with her almost 1-year-old daughter who is also being seen), elevated BMI, , anxiety, GERD, tobacco use. She was seen in the ER 5 days ago and diagnosed with an ear infection. According to those notes she had been having URI symptoms for about 2 weeks and then at 9:00 a.m. at night that day she started having right ear pain. prescribed amoxicillin Related Data Home Medications ?Medication ?Instructions ?Recorded ?Confirmed albuterol sulfate 90 mcg/actuation 2 puff inhalation Q4-6H PRN 05/22/22 10/25/24 aerosol inhaler acetaminophen 500 mg capsule 500 mg PO Q4-6H PRN 09/17/23 10/25/24 fluticasone propionate 110 1 puff inhalation BID PRN 03/03/24 10/25/24 mcg/actuation HFA aerosol inhaler (Flovent HFA) guanfacine 1 mg tablet 2 mg PO QDAY 09/23/24 10/25/24 venlafaxine 150 mg 225 mg PO QAM 09/23/24 10/25/24 capsule,extended release 24 hr Previous Rx's ?Medication ?Instructions ?Recorded hydroxyzine pamoate 50 mg capsule 50 mg PO QHS PRN anxiety/sleep #30 10/15/23 caps omeprazole 40 mg capsule,delayed 40 mg PO QDAY #90 caps 09/23/24 release tirzepatide 2.5 mg/0.5 mL 2.5 mg (0.5 mL) subcut QWEEK #2 mL 10/01/24 subcutaneous pen injector (Manjinderunvicro) Allergies Allergy/AdvReac Type Severity Reaction Status Date / Time trazodone Allergy Mild Hives Verified 10/25/24 18:08 [facility] Medical History Tobacco dependence syndrome ?F17.200 - Nicotine dependence, unspecified, uncomplicated (ICD-10) Gestational hypertension (03/2019) ?O13.9 - Gestational [-induced] hypertension without significant proteinuria, unspecified trimester (ICD-10) History of miscarriage ?Z87.59 - Personal history of other complications of , childbirth and the puerperium (ICD-10) hemorrhage ?O72.1 - Other immediate hemorrhage (ICD-10) Surgical History Status post primary low transverse section ?Z98.891 - History of uterine scar from previous surgery (ICD-10) History of cholecystectomy ?Z90.49 - Acquired absence of other specified parts of digestive tract (ICD-10) Family History Father Coronary artery disease Mother Depression Chronic mental illness Other Alcohol dependence Drug dependence Social History What is your current living situation?: I presently have a place to live Problems where you live: no known problems In the past 12 months, utilities in danger of being shut off: no In past 12 months, lack of transportation kept you from medical appts, meetings, work, or getting things needed for daily living: no How hard is it for you to pay for the very basics like food, housing, medical care, and heating: not very hard In the past 12 mos, have been you worried that your food would run out before you had money to buy more?: never true In the past 12 mos, the food you bought just didn't last and you didn't have money to buy more?: never true Smoking Status: Former smoker What tobacco products do you use: cigarettes Smoking quit date/years: <= 15 years ago Do you use any of these nicotine containing products: None Second hand tobacco smoke exposure: No How often do you have a drink containing alcohol: never How often do you have six or more drinks on one occasion: Never AUDIT-C Alcohol total score: 0 Non-prescribed substance use: denies use Within the last year, have you been humiliated or emotionally abused in other ways by your partner or ex-partner: no Within the last year, have you been afraid of your partner or ex-partner: no Within the last year, have you been raped or forced to have any kind of sexual activity by your partner or ex-partner: no Within the last year, have you been kicked, hit, slapped, or otherwise physically hurt by your partner or ex-partner: no HARK total score: 0 service: No Exam Const: Vital Signs, click to edit/add: Vital Signs - 24 hr 10/25/24 18:02 Temperature 97.2 F L Pulse Rate [Pulse Oximeter] 120 H Respiratory Rate 18 Blood Pressure [Ri ght Upper Arm] 126/89 Pulse Oximetry 97 Course Vital Signs Vital signs: Initial Vital Signs Temperature 97.2 F L 10/25/24 18:02 Temperature Source Temporal Artery Scan 10/25/24 18:02 Pulse Rate 120 H 10/25/24 18:02 Respiratory Rate 18 10/25/24 18:02 Blood Pressure 126/89 10/25/24 18:02 Blood Pressure Mean 101 10/25/24 18:02 Pulse Oximetry 97 10/25/24 18:02 Vital Signs Temperature 97.2 F L 10/25/24 18:02 Pulse Rate 120 H 10/25/24 18:02 Respiratory Rate 18 10/25/24 18:02 Blood Pressure 126/89 10/25/24 18:02 Pulse Oximetry 97 10/25/24 18:02 Temperature 97.2 F L 10/25/24 18:02 Pulse Rate 120 H 10/25/24 18:02 Respiratory Rate 18 10/25/24 18:02 Blood Pressure 126/89 10/25/24 18:02 Pulse Oximetry 97 10/25/24 18:02 Discharge Plan Discharge Prescriptions: No Action albuterol sulfate 90 mcg/actuation HFA aerosol inhaler 2 puff inhalation Q4-6H PRN fluticasone propionate [Flovent HFA] 110 mcg/actuation HFA aerosol inhaler 1 puff inhalation BID PRN guanfacine 1 mg tablet 2 mg PO QDAY venlafaxine 150 mg capsule,extended release 24hr 225 mg PO QAM omeprazole 40 mg capsule,delayed release(DR/EC) 40 mg PO QDAY Qty: 90 3RF acetaminophen 500 mg capsule 500 mg PO Q4-6H PRN hydroxyzine pamoate 50 mg capsule 50 mg PO QHS PRN (Reason: anxiety/sleep) Qty: 30 0RF Mounjaro 2.5 mg/0.5 mL pen injector 2.5 mg subcut QWEEK Qty: 2 0RF Rx Instructions: for 4 weeks Follow Up/Referrals: Edinson Loo MD [Primary Care Provider] -
[2024-10-25 18:02] VITALS: BP 126/89; PULSE 120; RESP 18; TEMP 36.2; O2SAT 97; BMI 47.6
--- NOTE | 2024-10-25 18:53 | ED.EAR ---
HPI - Ear Problem General Chief complaint: Ear/Nose/Throat Problem Stated complaint: Ear infection, congestion Time Seen by Provider: 10/25/24 17:43 History of Present Illness HPI Narrative: Three 4-year-old female with a history of hypertension, preeclampsia (here with her almost 1-year-old daughter who is also being seen), elevated BMI, , anxiety, GERD, tobacco use. She was seen in the ER 5 days ago and diagnosed with an ear infection. According to those notes she had been having URI symptoms for about 2 weeks and then at 9:00 a.m. at night that day she started having right ear pain. prescribed amoxicillin. Has had some improvement with her pain but it has not fully resolved. Still states she has some difficulty hearing. Has decreased pain when pulling on the ear. No other concerns noted. Related Data Home Medications ?Medication ?Instructions ?Recorded ?Confirmed albuterol sulfate 90 mcg/actuation 2 puff inhalation Q4-6H PRN 05/22/22 10/25/24 aerosol inhaler acetaminophen 500 mg capsule 500 mg PO Q4-6H PRN 09/17/23 10/25/24 fluticasone propionate 110 1 puff inhalation BID PRN 03/03/24 10/25/24 mcg/actuation HFA aerosol inhaler (Flovent HFA) guanfacine 1 mg tablet 2 mg PO QDAY 09/23/24 10/25/24 venlafaxine 150 mg 225 mg PO QAM 09/23/24 10/25/24 capsule,extended release 24 hr Previous Rx's ?Medication ?Instructions ?Recorded hydroxyzine pamoate 50 mg capsule 50 mg PO QHS PRN anxiety/sleep #30 10/15/23 caps omeprazole 40 mg capsule,delayed 40 mg PO QDAY #90 caps 09/23/24 release tirzepatide 2.5 mg/0.5 mL 2.5 mg (0.5 mL) subcut QWEEK #2 mL 10/01/24 subcutaneous pen injector ([place]) Allergies Allergy/AdvReac Type Severity Reaction Status Date / Time trazodone Allergy Mild Hives Verified 10/25/24 18:08 Review of Systems Status of ROS: Reports: 10 or more systems reviewed and unremarkable except as noted in History and below [facility] Medical History Tobacco dependence syndrome ?F17.200 - Nicotine dependence, unspecified, uncomplicated (ICD-10) Gestational hypertension (03/2019) ?O13.9 - Gestational [-induced] hypertension without significant proteinuria, unspecified trimester (ICD-10) History of miscarriage ?Z87.59 - Personal history of other complications of , childbirth and the puerperium (ICD-10) hemorrhage ?O72.1 - Other immediate hemorrhage (ICD-10) Surgical History Status post primary low transverse section ?Z98.891 - History of uterine scar from previous surgery (ICD-10) History of cholecystectomy ?Z90.49 - Acquired absence of other specified parts of digestive tract (ICD-10) Family History Father Coronary artery disease Mother Depression Chronic mental illness Other Alcohol dependence Drug dependence Social History What is your current living situation?: I presently have a place to live Problems where you live: no known problems In the past 12 months, utilities in danger of being shut off: no In past 12 months, lack of transportation kept you from medical appts, meetings, work, or getting things needed for daily living: no How hard is it for you to pay for the very basics like food, housing, medical care, and heating: not very hard In the past 12 mos, have been you worried that your food would run out before you had money to buy more?: never true In the past 12 mos, the food you bought just didn't last and you didn't have money to buy more?: never true Smoking Status: Former smoker What tobacco products do you use: cigarettes Smoking quit date/years: <= 15 years ago Do you use any of these nicotine containing products: None Second hand tobacco smoke exposure: No How often do you have a drink containing alcohol: never How often do you have six or more drinks on one occasion: Never AUDIT-C Alcohol total score: 0 Non-prescribed substance use: denies use Within the last year, have you been humiliated or emotionally abused in other ways by your partner or ex-partner: no Within the last year, have you been afraid of your partner or ex-partner: no Within the last year, have you been raped or forced to have any kind of sexual activity by your partner or ex-partner: no Within the last year, have you been kicked, hit, slapped, or otherwise physically hurt by your partner or ex-partner: no HARK total score: 0 service: No Exam Narrative: Exam Narrative: Const: Well-nourished, Well-developed, in no distress Eyes: PERRL, no conjunctival injection, and symmetrical lids HENT: Atraumatic external nose and ears. Moist mucous membranes. Erythematous right tympanic membrane with fluid behind the ear. Normal left panic membranes. Bilateral normal external auditory canals. No pain or swelling behind the ears. Neck: Symmetric, trachea midline, No thyromegaly. MSK:Extremities w/o deformity, Normal Active ROM Skin: Warm, Dry. No rashes or lesions. Neuro: Normal Muscle tone, No focal neurological deficits. Psych: Awake, Alert, & Oriented x3. Appropriate mood and affect. Const: Vital Signs, click to edit/add: Vital Signs - 24 hr 10/25/24 18:02 Temperature 97.2 F L Pulse Rate [Pulse Oximeter] 120 H Respiratory Rate 18 Blood Pressure [Ri ght Upper Arm] 126/89 Pulse Oximetry 97 Course Vital Signs Vital signs: Initial Vital Signs Temperature 97.2 F L 10/25/24 18:02 Temperature Source Temporal Artery Scan 10/25/24 18:02 Pulse Rate 120 H 10/25/24 18:02 Respiratory Rate 18 10/25/24 18:02 Blood Pressure 126/89 10/25/24 18:02 Blood Pressure Mean 101 10/25/24 18:02 Pulse Oximetry 97 10/25/24 18:02 Vital Signs Temperature 97.2 F L 10/25/24 18:02 Pulse Rate 120 H 10/25/24 18:02 Respiratory Rate 18 10/25/24 18:02 Blood Pressure 126/89 10/25/24 18:02 Pulse Oximetry 97 10/25/24 18:02 Temperature 97.2 F L 10/25/24 18:02 Pulse Rate 120 H 10/25/24 18:02 Respiratory Rate 18 10/25/24 18:02 Blood Pressure 126/89 10/25/24 18:02 Pulse Oximetry 97 10/25/24 18:02 Medical Decision Making MDM Narrative Medical decision making narrative: Patient is a 34-year-old female presenting for right earache. She has been on amoxicillin for 5 days with some mild improvement but she still has difficulty hearing of the year. I did evaluate her 5 days ago and today and the right tympanic membrane does appear worse compared to previously 5 remember correctly. No signs of mastoiditis or otitis externa. I will switch her to Augmentin. She is agreeable to this plan. She will be discharged. Discharge Plan Discharge Clinical Impression: Acute right otitis media Patient Disposition: Home, Self-Care Condition: Stable Instructions: Ear Infection (ED) Additional Instructions: Stop the amoxicillin and switch to Augmentin. 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 Prescriptions: No Action albuterol sulfate 90 mcg/actuation HFA aerosol inhaler 2 puff inhalation Q4-6H PRN fluticasone propionate [Flovent HFA] 110 mcg/actuation HFA aerosol inhaler 1 puff inhalation BID PRN guanfacine 1 mg tablet 2 mg PO QDAY venlafaxine 150 mg capsule,extended release 24hr 225 mg PO QAM omeprazole 40 mg capsule,delayed release(DR/EC) 40 mg PO QDAY Qty: 90 3RF acetaminophen 500 mg capsule 500 mg PO Q4-6H PRN hydroxyzine pamoate 50 mg capsule 50 mg PO QHS PRN (Reason: anxiety/sleep) Qty: 30 0RF Mounjaro 2.5 mg/0.5 mL pen injector 2.5 mg subcut QWEEK Qty: 2 0RF Rx Instructions: for 4 weeks Follow Up/Referrals: Edinson Loo MD [Primary Care Provider] - Stand Alone Forms: [employer] Info Instructions
[2024-10-25 19:19] VITALS: BP 118/78; PULSE 99; RESP 18; TEMP 36.7; O2SAT 97
== END 2024-10-25 19:20 | disposition home or self-care (01) ==
PROVIDERS: Emergency Provider Student in an Organized Health Care Education/Training Program; PCP Family Medicine
DX: H66.91 Otitis media, unspecified, right ear (principal)
CPT/HCPCS: 99282; 99283